=== PATIENT | male | born 1950 | race Caucasian/White ===

== ENCOUNTER 2021-11-02 18:47 | Inpatient (IN) ==
[2021-11-02 19:19] LABS: Basophils # (auto) 0.04 K/uL (0-0.2); Basophils % (auto) 0.5 %; Eosinophils # (auto) 0.14 K/uL (0-0.50); Eosinophils % (auto) 1.7 %; Hematocrit (blood only) 47.7 % (40.1-51.0); Hemoglobin 16.6 g/dl (14.0-18.0); Immature Granulocytes # (auto) 0.03 K/uL (0.00-0.02); Immature Granulocytes % (auto) 0.4 %; Lymphocytes # (auto) 1.41 K/uL (1.2-3.4); Lymphocytes % (auto) 16.6 %; Mean Corpuscular Hgb Conc 34.8 g/dL (32.0-36.0); Monocytes # (auto) 0.71 K/uL (0.24-0.82); Monocytes % (auto) 8.4 %; Neutrophils # (auto) 6.14 K/uL (1.4-6.5); Neutrophils % (auto) 72.4 %; Platelet Count 208 K/uL (130-400); RDW Coefficient of Variation 13.5 % (11.5-14.5); RDW Standard Deviation 43.8 fL (36.4-46.3); Red Blood Count 5.36 M/uL (4.63-6.08); White Blood Count 8.47 K/ul (4.8-10.8)
--- NOTE | 2021-11-02 19:28 | Emergency Department Note ---
Impression & Plan Chest pain, Abnormal EKG ED Provider Note NAME: SRINIVASAN SEXTON AGE: 71 SEX: M : 1950 ARRIVES VIA: Ambulance INFORMANT: Patient, ED PROVIDER(S): Ashish Javier DO CHIEF COMPLAINT: Chest pain HPI: The patient is a 71-year-old male who presented to the emergency department for an evaluation of chest pain. The patient states that he has chest pain over the course of the last few months. He states it does worsen with exertion. The patient also noticed some shortness of breath. The patient talked to his family member who is in the medical field. They advised him to seek medical treatment. The patient went to the [facility] and [place] and was sent directly to the emergency department. They felt he had an EKG that showed some changes. The patient does have a history of coronary artery disease with grafting. He states he did not take his nitroglycerin. The patient states that he was given aspirin at the clinic prior to coming to the emergency department. The patient at this time states he has no discomfort. He denies having any shortness of breath at this time. He denies having any leg swelling. ROS: See above HPI for pertinent positives & negatives. A total of 10 systems reviewed and were otherwise negative. PAST MEDICAL HISTORY: See Below PAST SURGICAL HISTORY: See Below FAMILY HISTORY: See Below SOCIAL HISTORY: See Below HOME MEDICATIONS: See Below ALLERGIES: See Below VITALS: See Below PHYSICAL EXAMINATION: GENERAL: Patient is awake alert in no acute distress patient is resting comfortably and showing no signs of anxiety EYES: The conjunctivae are clear. The pupils are round and reactive. EARS, NOSE, MOUTH AND THROAT: The nose is without any evidence of any deformity. NECK: The neck is nontender and supple. RESPIRATORY: Normal respiratory effort is noted there is no evidence of wheezing rhonchi or rales CARDIOVASCULAR: Regular rate and rhythm noted there no murmurs rubs or gallops normal S1 normal S2. GASTROINTESTINAL: The abdomen is soft. Abdomen is nontender. MUSCULOSKELETAL/EXTREMITIES: There is no evidence of gross deformity full range of motion is noted in the hips and shoulders. SKIN: Pedal edema was noted bilaterally. Skin was warm and dry. NEUROLOGIC: Patient is awake alert and oriented x3 MEDICAL DECISION MAKING: The patient is a 71-year-old male who presented to the emergency department for an evaluation of chest pain. The patient has a history of coronary artery disease as well as coronary artery stenting. The patient is high risk for underlying ACS. The patient arrived at the emergency department. He was treated with aspirin prior to arrival. He has no pain at this time. I discussed the patient's laboratory and radiographic studies with him. I also discussed the limitations of the emergency department work-up for chest pain with him. Ultimately given the patient's risk factors and comorbidities I discussed his case with the on-call [facility] [address] hospitalist. They have agreed to evaluate the patient in the emergency department for further management and disposition. Triage Nursing notes reviewed. Prior medical records reviewed Vital Signs: reviewed and remarkable for no significant abnormalities Differential diagnosis: Cardiac ischemia, aortic dissection, pulmonary embolism, pneumothorax, pneumonia, pericarditis, myocarditis, esophageal rupture, GERD, cholecystitis, pancreatitis, musculoskeletal, as well as other pathologies. ER treatment provided: See below Diagnostics interpreted by me: ECG: EKG was obtained in the emergency department. My interpretation is sinus rhythm at 83 bpm. First-degree block is noted. Right bundle branch block pattern was noted. This was compared to the patient's previous tracing that was obtained at the [facility]. No significant changes were noted. Cardiac Monitoring: An order was placed for continuous cardiac monitoring. The monitor shows a rate of 71 bpm with sinus rhythm. Laboratory studies: As stated above and show below. Imaging studies: See below Consultation(s): I discussed this case with Dr. Lizama Past Med/Surg History Medical History BPH (benign prostatic hyperplasia) CAD in [place] artery Cellulitis Diabetes mellitus, type II Dyslipidemia GERD (gastroesophageal reflux disease) HTN (hypertension) Obesity Sleep apnea Surgical History H/O heart artery stent History of total hip arthroplasty Family History Other Diabetes Hypertension Social History Smoking Status: Former smoker Hx Alcohol Use: Yes (1 mixed drink 2-3 times a week) Hx Substance Use: No Preferred Language: Cymraes Feels Safe at Home: Yes Allergies Allergies Allergy/AdvReac Type Severity Reaction Status Date / Time atorvastatin AdvReac Muscle Pain Verified 11/02/21 21:09 pravastatin [From Pravachol] AdvReac Muscle Pain Verified 11/02/21 21:09 rosuvastatin [From Crestor] AdvReac Muscle Pain Verified 11/02/21 21:09 simvastatin [From Zocor] AdvReac Muscle Pain Verified 11/02/21 21:09 tiotropium AdvReac Eye Verified 11/02/21 21:57 floaters & Urinary retention Home Meds Home Medications Medication Instructions Recorded Confirmed alirocumab 150 mg/mL subcutaneous 150 mg subcut Q14D 07/29/19 11/02/21 pen injector (Praluent Pen) aspirin 81 mg tablet,delayed 81 mg PO QAM 07/29/19 11/02/21 release clonazepam 1 mg tablet (Klonopin) 1 mg PO HS PRN Insomnia 07/29/19 11/02/21 doxazosin 4 mg tablet (Cardura) 4 mg PO QAM 07/29/19 11/02/21 esomeprazole magnesium 20 mg 20 mg PO QAM 07/29/19 11/02/21 tablet,delayed release (Nexium 24HR) lisinopril 2.5 mg tablet (Zestril) 2.5 mg PO QAM 07/29/19 11/02/21 metformin 1,000 mg tablet 1,000 mg PO BID 07/29/19 11/02/21 nitroglycerin 0.4 mg sublingual 0.4 mg sublingual Q15M PRN Chest 07/29/19 11/02/21 tablet (Nitrostat) Pain omega 7-tkg-xjg-fish oil 1,000 mg 1 cap PO QAM 07/29/19 11/02/21 (120 mg-180 mg) capsule (Fish Oil) cholecalciferol (vitamin D3) 25 1,000 unit PO DAILY 11/02/21 11/02/21 mcg (1,000 unit) tablet dulaglutide 1.5 mg/0.5 mL 1.5 mg subcut WK 11/02/21 11/02/21 subcutaneous pen injector (Trulicity) empagliflozin 25 mg tablet 25 mg PO DAILY 11/02/21 11/02/21 (Jardiance) ezetimibe 10 mg tablet 10 mg PO DAILY 11/02/21 11/02/21 fluticasone propionate 50 2 spray intranasal DAILY PRN 11/02/21 11/02/21 mcg/actuation nasal Congestion spray,suspension Results & Data (ED) Vital Signs Vital Signs - 24 hr 11/02/21 19:10 11/02/21 19:14 11/02/21 18:57 Pulse Rate 111 H Pulse Rate from SpO2 Sensor Respiratory Rate 22 Blood Pressure Blood Pressure Mean Pulse Oximetry 99 Oxygen Delivery Method Room Air Sepsis Recent Fever Within 48 Hours No Sepsis New/Unexplained Change in Mental Status No Sepsis Action Taken by Nursing No Action Required 11/02/21 19:00 11/02/21 19:03 11/02/21 19:03 Pulse Rate 81 80 Pulse Rate from SpO2 Sensor 86 Respiratory Rate 17 15 Blood Pressure 146/92 H Blood Pressure Mean 110 Pulse Oximetry 96 Oxygen Delivery Method Sepsis Recent Fever Within 48 Hours Sepsis New/Unexplained Change in Mental Status Sepsis Action Taken by Nursing 11/02/21 19:10 11/02/21 19:20 11/02/21 19:30 Pulse Rate 87 76 77 Pulse Rate from SpO2 Sensor 85 78 74 Respiratory Rate 21 14 15 Blood Pressure Blood Pressure Mean Pulse Oximetry 98 97 98 Oxygen Delivery Method Sepsis Recent Fever Within 48 Hours Sepsis New/Unexplained Change in Mental Status Sepsis Action Taken by Nursing 11/02/21 19:31 11/02/21 19:31 11/02/21 19:40 Pulse Rate 76 69 Pulse Rate from SpO2 Sensor 71 63 Respiratory Rate 18 16 Blood Pressure 128/83 Blood Pressure Mean 98 Pulse Oximetry 98 97 Oxygen Delivery Method Sepsis Recent Fever Within 48 Hours Sepsis New/Unexplained Change in Mental Status Sepsis Action Taken by Nursing 11/02/21 20:00 11/02/21 20:00 11/02/21 20:30 Pulse Rate 70 Pulse Rate from SpO2 Sensor 68 Respiratory Rate 12 Blood Pressure 124/76 129/81 Blood Pressure Mean 92 97 Pulse Oximetry 97 Oxygen Delivery Method Sepsis Recent Fever Within 48 Hours Sepsis New/Unexplained Change in Mental Status Sepsis Action Taken by Nursing 11/02/21 20:30 11/02/21 22:06 11/02/21 22:07 Pulse Rate 77 63 Pulse Rate from SpO2 Sensor 75 Respiratory Rate 16 13 Blood Pressure 123/69 Blood Pressure Mean 87 Pulse Oximetry 95 Oxygen Delivery Method Sepsis Recent Fever Within 48 Hours Sepsis New/Unexplained Change in Mental Status Sepsis Action Taken by Nursing 11/02/21 22:07 11/02/21 22:30 11/02/21 22:31 Pulse Rate 61 69 Pulse Rate from SpO2 Sensor Respiratory Rate 16 18 Blood Pressure 121/74 Blood Pressure Mean 89 Pulse Oximetry Oxygen Delivery Method Sepsis Recent Fever Within 48 Hours Sepsis New/Unexplained Change in Mental Status Sepsis Action Taken by Nursing 11/02/21 22:31 Pulse Rate 71 Pulse Rate from SpO2 Sensor Respiratory Rate 17 Blood Pressure Blood Pressure Mean Pulse Oximetry Oxygen Delivery Method Sepsis Recent Fever Within 48 Hours Sepsis New/Unexplained Change in Mental Status Sepsis Action Taken by Prison Medications Current Medication List: was personally reviewed by me Laboratory Data Attestation: I reviewed the patient's lab results. Result diagrams: 11/02/21 19:04 11/02/21 19:04 Lab Results 11/02/21 11/02/21 11/02/21 Range/Units 19:04 19:04 19:04 WBC 8.47 (4.8-10.8) K/ul RBC 5.36 (4.63-6.08) M/uL Hgb 16.6 (14.0-18.0) g/dl Hct 47.7 (40.1-51.0) % MCV 89.0 (80.0-100.0) fL MCH 31.0 (25.0-34.0) pg MCHC 34.8 (32.0-36.0) g/dL RDW Std Deviation 43.8 (36.4-46.3) fL RDW Coeff of Sebastian 13.5 (11.5-14.5) % Plt Count 208 (130-400) K/uL MPV 9.0 L (9.4-12.4) fL Immature Gran % (Auto) 0.4 % Neut % (Auto) 72.4 % Lymph % (Auto) 16.6 % [place] % (Auto) 8.4 % Eos % (Auto) 1.7 % Baso % (Auto) 0.5 % Neut # (Auto) 6.14 (1.4-6.5) K/uL Lymph # (Auto) 1.41 (1.2-3.4) K/uL [place] # (Auto) 0.71 (0.24-0.82) K/uL Eos # (Auto) 0.14 (0-0.50) K/uL Baso # (Auto) 0.04 (0-0.2) K/uL Immature Gran # (Auto) 0.03 H (0.00-0.02) K/uL PT 10.1 (9.0-12.0) Seconds INR 0.9 (0.9-1.1) APTT 23.4 (21.0-31.0) Seconds PTT Ratio 0.9 Sodium 141 (136-145) mmol/L Potassium 3.9 (3.5-5.1) mmol/L Chloride 104 (98-107) mmol/L Carbon Dioxide 26 (21-32) mmol/L Anion Gap 11 (3-11) BUN 17 (6-23) mg/dl Creatinine 0.91 (0.6-1.4) mg/dl Est Cr Clr Drug Dosing 100.2 ml/min Est GFR ( Amer) 97.2 ml/min Est GFR (Non-Af Amer) 83.9 ml/min BUN/Creatinine Ratio 18.7 (10-20) Glucose 167 H (70-99(Fasting)) mg/dl Calcium 9.8 (8.5-10.1) mg/dl Total Bilirubin 0.6 (0.2-1.0) mg/dl AST 14 (13-39) U/L ALT 12 (7-52) U/L Alkaline Phosphatase 81 (34-104) U/L Troponin I High Sens 7.7 (0-20) pg/ml Total Protein 7.6 (6.0-8.3) gm/dl Albumin 4.2 (3.4-5.0) gm/dl Globulin 3.4 (2.5-4.0) gm/dl Albumin/Globulin Ratio 1.2 (0.9-2) Lipase 28 (11-82) U/L SARS-CoV-2, RNA, NAAT (NEGATIVE) 11/02/21 11/02/21 Range/Units 19:15 22:29 WBC (4.8-10.8) K/ul RBC (4.63-6.08) M/uL Hgb (14.0-18.0) g/dl Hct (40.1-51.0) % MCV (80.0-100.0) fL MCH (25.0-34.0) pg MCHC (32.0-36.0) g/dL RDW Std Deviation (36.4-46.3) fL RDW Coeff of Sebastian (11.5-14.5) % Plt Count (130-400) K/uL MPV (9.4-12.4) fL Immature Gran % (Auto) % Neut % (Auto) % Lymph % (Auto) % [place] % (Auto) % Eos % (Auto) % Baso % (Auto) % Neut # (Auto) (1.4-6.5) K/uL Lymph # (Auto) (1.2-3.4) K/uL [place] # (Auto) (0.24-0.82) K/uL Eos # (Auto) (0-0.50) K/uL Baso # (Auto) (0-0.2) K/uL Immature Gran # (Auto) (0.00-0.02) K/uL PT (9.0-12.0) Seconds INR (0.9-1.1) APTT (21.0-31.0) Seconds PTT Ratio Sodium (136-145) mmol/L Potassium (3.5-5.1) mmol/L Chloride (98-107) mmol/L Carbon Dioxide (21-32) mmol/L Anion Gap (3-11) BUN (6-23) mg/dl Creatinine (0.6-1.4) mg/dl Est Cr Clr Drug Dosing ml/min Est GFR ( Amer) ml/min Est GFR (Non-Af Amer) ml/min BUN/Creatinine Ratio (10-20) Glucose (70-99(Fasting)) mg/dl Calcium (8.5-10.1) mg/dl Total Bilirubin (0.2-1.0) mg/dl AST (13-39) U/L ALT (7-52) U/L Alkaline Phosphatase (34-104) U/L Troponin I High Sens 9.9 (0-20) pg/ml Total Protein (6.0-8.3) gm/dl Albumin (3.4-5.0) gm/dl Globulin (2.5-4.0) gm/dl Albumin/Globulin Ratio (0.9-2) Lipase (11-82) U/L SARS-CoV-2, RNA, NAAT NEGATIVE (NEGATIVE) Administered Medications Discontinued Medications Ioversol (Optiray 300 500ml) 109 ml IV ONCE ONE Stop: 11/02/21 23:10 Last Admin: 11/02/21 23:10 Dose: 109 ml Documented By: SERGIO Imaging Data Radiologist's Impression: Chest X-Ray 11/02/21 18:57 SINGLE VIEW CHEST CLINICAL HISTORY: Atypical chest pain. Cough and dyspnea FINDINGS: 2 AP, portable, upright chest radiographs are compared to study dated 02/02/2006. The heart is enlarged noting atherosclerotic calcification of the thoracic aorta. The pulmonary vasculature is noncongested. Chronic interstitial thickening is similar to previous. There is bibasilar scarring/atelectasis. No airspace consolidation or large pleural effusion is identified. No pneumothorax is seen. The skeletal structures are osteopenic. The bony thorax is grossly intact. IMPRESSION: Cardiomegaly with no acute cardiopulmonary abnormality identified. ACT 112: Negative or not required by law. Electronically signed by: Apolinar Ribeiro M.D. 11/02/2021 7:46 PM Chest CTA 11/02/21 22:52 CT ANGIOGRAM OF THE CHEST CLINICAL HISTORY: Dyspnea. Atypical chest pain. COMPARISON STUDY: Chest x-ray dated 11/02/2021. TECHNIQUE: Following the IV administration of 109 cc of Optiray 350, CT angiogram of the chest was performed from the upper abdomen to the thoracic inlet utilizing the pulmonary embolus protocol. Images are reviewed in the axial, sagittal, and coronal planes. 3-D MIPS images are created and assessed. IV contrast was administered without complication. A dose lowering technique was utilized adhering to the principles of ALARA. CT DOSE: 807.06 mGy.cm FINDINGS: Thyroid: Imaged portions of the thyroid gland are normal in size and attenuation. Thoracic aorta: The thoracic aorta is normal in caliber and demonstrates standard 3-vessel arch anatomy. No dissection is seen. Pulmonary vasculature: The pulmonary trunk is normal in caliber. There are no filling defects identified in main, lobar, or segmental pulmonary branches to suggest pulmonary embolus. Heart: The heart is enlarged and without pericardial effusion. The coronary arteries are densely calcified. Lungs and pleural spaces: Emphysematous changes noted. There is no airspace consolidation or pleural effusion. The trachea and central airways are clear. There are bilateral fat-containing Bochdalek hernias. Scarring/atelectasis is seen at both lung bases. A 7 mm pulmonary nodule at the right lung base seen on image #89. A 10 mm pleural-based nodule in the right lower lobe is seen on image #129. Mediastinum: There is no mediastinal lymphadenopathy. [place]: Clear. Axillae: There is no axillary lymphadenopathy. Upper abdomen: There is a small hiatal hernia. Partially visualized upper abdominal viscera is otherwise within normal limits. Skeletal structures: The skeletal structures are osteopenic. No lytic or blastic bony lesions are seen. Degenerative change is noted in the thoracic spine and shoulders. IMPRESSION: 1. There is no evidence of pulmonary embolus in the main, lobar, or segmental pulmonary arteries. 2. Cardiomegaly and emphysema. 3. There is no airspace consolidation or pleural effusion. 4. There are 2 pathologically indeterminant pulmonary and pleural-based nodules at the right lung base measuring up to 10 mm. These can be followed as per the Fleischner criteria. See below. 5. Additional findings as above. Please refer to below summary of Fleischner criteria recommendations for follow- up of incidental CT nodules (Ro Byrne, Guidelines for management of small pulmonary nodules detected on CT scans: A statement from the Fleischner Society, Radiology 237: [phone].) SOLID NODULES Solitary nodule size: <6 mm * low risk patients: no follow-up needed * high risk patients: optional CT at 12 months Solitary nodule size: 6-8 mm * low risk patients: follow-up at 6-12 months, then consider further follow-up at 18-24 months * high risk patients: initial follow-up CT at 6-12 months and then at 18-24 months if no change Solitary nodule size: >8 mm * either low or high risk patients - consider follow-up CT at 3 months, and/or CT-PET, and/or biopsy Multiple nodules size: <6 mm * low risk patients: no routine follow-up * high risk patients: optional CT at 12 months Multiple nodules size: 6-8 mm * low risk patients: follow-up at 3-6 months, then consider further follow-up at 18-24 months * high risk patients: follow-up at 3-6 months, then at 18-24 months if no change Multiple nodules size: >8 mm * low risk patients: follow-up at 3-6 months, then consider further follow-up at 18-24 months * high risk patients: follow-up at 3-6 months, then at 18-24 months if no change Note: newly detected indeterminate nodule in persons 35 years of age or older. * low risk patients: minimal or absent history of smoking and/or other known risk factors * high risk patients: history of smoking or of other known risk factors (e.g. first degree relative with lung cancer, or exposure to asbestos, radon, uranium) * if a nodule up to 8 mm is partly solid or is ground glass further follow-up is required after 24 months to exclude possible slow growing adenocarcinoma (YOLIE) SUBSOLID NODULES Solitary pure ground-glass nodule * nodule size <6 mm - no CT follow-up required * nodule size >=6 mm - follow-up CT at 6-12 months, then every 2 years until 5 years Solitary part-solid nodule * nodule size <6 mm - no CT follow-up required * nodule size >=6 mm - follow-up CT at 3-6 months. If unchanged, and solid component remains <6 mm, then annual follow-up for 5 years Multiple subsolid nodules * nodule size <6 mm - follow-up CT at 3-6 months, consider further follow-up at 2 and 4 years if stable * nodule size >=6 mm - follow-up CT at 3-6 months, subsequent management based on the most suspicious nodule(s) ACT 112: Negative or not required by law. Electronically signed by: Apolinar Ribeiro M.D. 11/02/2021 11:22 PM Discharge Plan Visit Data Chief Complaint: Chest Pain Stated Complaint: CHEST PAIN ED Provider: Ashish Javier Discharge Problem: Chest pain, Abnormal EKG Patient Disposition: Being Evaluated by Hospitalist Forms Stand Alone Forms: [facility] Prescriptions Prescriptions: No Action clonazepam [Klonopin] 1 mg tablet 1 mg PO HS PRN (Reason: Insomnia) aspirin 81 mg Tablet,Delayed Release (Dr/Ec) 81 mg PO QAM metformin 1,000 mg tablet 1,000 mg PO BID nitroglycerin [Nitrostat] 0.4 mg tablet, sublingual 0.4 mg sublingual Q15M PRN (Reason: Chest Pain) doxazosin [Cardura] 4 mg tablet 4 mg PO QAM lisinopril [Zestril] 2.5 mg tablet 2.5 mg PO QAM omega 1-enj-ndb-fish oil [Fish Oil] 1,000 mg (120 mg-180 mg) Capsule 1 cap PO QAM esomeprazole magnesium [Nexium 24HR] 20 mg Tablet,Delayed Release (Dr/Ec) 20 mg PO QAM Praluent Pen 150 mg/mL pen injector 150 mg SUBCUT Q14D ezetimibe 10 mg tablet 10 mg PO DAILY cholecalciferol (vitamin D3) 25 mcg (1,000 unit) Tablet 1,000 unit PO DAILY Jardiance 25 mg tablet 25 mg PO DAILY Trulicity 1.5 mg/0.5 mL pen injector 1.5 mg SUBCUT WK fluticasone propionate 50 mcg/actuation spray,suspension 2 spray INTRANASAL DAILY PRN (Reason: Congestion) Referrals Referrals: Dean De Souza MD [Primary Care Provider] -
[2021-11-02 19:39] LABS: INR 0.9 (0.9-1.1); Partial Thromboplastin Ratio 0.9; Partial Thromboplastin Time 23.4 Seconds (21.0-31.0); Prothrombin Time 10.1 Seconds (9.0-12.0)
--- NOTE | 2021-11-02 19:48 | XRay Report ---
SINGLE VIEW CHEST CLINICAL HISTORY: Atypical chest pain. Cough and dyspnea FINDINGS: 2 AP, portable, upright chest radiographs are compared to study dated 02/02/2006. The heart is enlarged noting atherosclerotic calcification of the thoracic aorta. The pulmonary vasculature is noncongested. Chronic interstitial thickening is similar to previous. There is bibasilar scarring/at electasis. No airspace consolidation or large pleural effusion is identified. No pneumothorax is seen . The skeletal structures are osteopenic. The bony thorax is grossly intact. IMPRESSION: Cardiomegaly with no acute cardiopulmonary abnormality identified. ACT 112: Negative or not required by law. Electronically signed by: Apolinar Ribeiro M.D. 11/02/2021 7:46 PM
[2021-11-02 20:01] LABS: Troponin I High Sensitivity 7.7 pg/ml (0-20)
[2021-11-02 20:04] LABS: Albumin Globulin Ratio 1.2 (0.9-2); Albumin Level 4.2 gm/dl (3.4-5.0); BUN Creatinine Ratio 18.7 (10-20); Bilirubin,Total 0.6 mg/dl (0.2-1.0); Calcium 9.8 mg/dl (8.5-10.1); Creatinine Clr Calc Pharmacy 100.2 ml/min; Est GFR (African American) 97.2 ml/min; Est GFR (Non-African American) 83.9 ml/min; Globulin 3.4 gm/dl (2.5-4.0); Potassium 3.9 mmol/L (3.5-5.1); Total Protein 7.6 gm/dl (6.0-8.3)
--- NOTE | 2021-11-02 21:16 | History & Physical Report ---
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 Assessment and plan per Dr. Churchill. See addendum History of Present Illness Chief Complaint: Chest discomfort Primary Care Provider: Dean De Souza MD Patient is 71-year-old male with PMH HTN, dyslipidemia, CAD status post stent RCA 2004, aortic root enlargement, DM II chronic BLE edema, venous insufficiency, obesity, BPH, RICK intolerant to CPAP, presented to ER with complaint of chest discomfort. Patient states today was grocery shopping and walking around the store. He returned home and upon return home he had onset of lightheadedness, palpitations, "chest feels funny but not painful", and jaw pain. He states with prior [place] had jaw pain. He reports he has been feeling short of breath with exertion more recently. Patient went to outpatient clinic for symptoms today and was referred to ER for further evaluation. In ER patient denies any chest pain, shortness of breath, palpitations, dizziness. She reports he feels fatigued. Patient states chronic insomnia and last night slept 1 hour. Patient states 2 weeks ago had nasal congestion, sore throat, cough. He reports his grandson had sore throat symptoms. He reports his symptoms have improved, still has lingering intermittent cough. Did not test for COVID-19 initially. Patient states 2 to 3 days ago did home COVID-19 test which was negative. Patient reports almost a month ago had scratch to right lower leg and had surrounding redness and was treated with oral antibiotics with improvement. Denies fever/chills, diaphoresis, N/V/D/C, RUSSELL, syncope, vision changes, neck pain, orthopnea, hemoptysis, choking, otalgia, abdominal pain, paresthesias, weakness, increased extremity edema, rashes, urinary symptoms. Allergies Allergy/AdvReac Type Severity Reaction Status Date / Time atorvastatin AdvReac Muscle Pain Verified 11/02/21 21:09 pravastatin [From Pravachol] AdvReac Muscle Pain Verified 11/02/21 21:09 rosuvastatin [From Crestor] AdvReac Muscle Pain Verified 11/02/21 21:09 simvastatin [From Zocor] AdvReac Muscle Pain Verified 11/02/21 21:09 tiotropium AdvReac Eye Verified 11/02/21 21:57 floaters & Urinary retention Home Medications Medication Instructions Recorded Confirmed Type alirocumab 150 mg/mL subcutaneous 150 mg subcut Q14D 07/29/19 11/02/21 History pen injector (Praluent Pen) aspirin 81 mg tablet,delayed 81 mg PO QAM 07/29/19 11/02/21 History release clonazepam 1 mg tablet (Klonopin) 1 mg PO HS PRN Insomnia 07/29/19 11/02/21 History doxazosin 4 mg tablet (Cardura) 4 mg PO QAM 07/29/19 11/02/21 History esomeprazole magnesium 20 mg 20 mg PO QAM 07/29/19 11/02/21 History tablet,delayed release (Nexium 24HR) lisinopril 2.5 mg tablet (Zestril) 2.5 mg PO QAM 07/29/19 11/02/21 History metformin 1,000 mg tablet 1,000 mg PO BID 07/29/19 11/02/21 History nitroglycerin 0.4 mg sublingual 0.4 mg sublingual Q15M PRN Chest 07/29/19 11/02/21 History tablet (Nitrostat) Pain omega 2-xyn-yur-fish oil 1,000 mg 1 cap PO QAM 07/29/19 11/02/21 History (120 mg-180 mg) capsule (Fish Oil) cholecalciferol (vitamin D3) 25 1,000 unit PO DAILY 11/02/21 11/02/21 History mcg (1,000 unit) tablet dulaglutide 1.5 mg/0.5 mL 1.5 mg subcut WK 11/02/21 11/02/21 History subcutaneous pen injector (Trulicity) empagliflozin 25 mg tablet 25 mg PO DAILY 11/02/21 11/02/21 History (Jardiance) ezetimibe 10 mg tablet 10 mg PO DAILY 11/02/21 11/02/21 History fluticasone propionate 50 2 spray intranasal DAILY PRN 11/02/21 11/02/21 History mcg/actuation nasal Congestion spray,suspension Past Med/Surg History Medical History BPH (benign prostatic hyperplasia) 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 Cellulitis Diabetes mellitus, type II Dyslipidemia GERD (gastroesophageal reflux disease) HTN (hypertension) Obesity Sleep apnea Surgical History H/O heart artery stent History of total hip arthroplasty Family History Other Diabetes Hypertension Social History Smoking Status: Former smoker Hx Alcohol Use: Yes Alcohol type: beer Hx Substance Use: No Preferred Language: Welsh 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 Machine Required: No Beliefs That Will Affect Care: None Current Living Situation: Spouse Feels Safe at Home: Yes Safety Concerns: Feels Safe At This Time Assistive Devices: Glasses Review of Systems Review of Systems: All systems reviewed & are unremarkable except as noted in HPI & below Physical Exam Physical Exam: General: no distress, obese Head: normocephalic, atraumatic Eyes: conjunctiva non-injected, anicteric ENT: normal inspection external ears, nose, mucous membranes moist Neck: supple, trachea midline Lungs: no respiratory distress, +scattered expiratory wheezing that decreases after coughing, no rhonchi/rales CV: RRR, no murmur, 1+ pretibial edema Abd: normal BS, soft, non-tender Ext: no cyanosis, no calf tenderness, RLE: +anterior lower leg with scab with surrounding erythema Neuro: A&O x 3, no focal deficits noted, normal affect Skin: warm, dry Results & Data Results & Data ([facility]) Vital Signs (Past 12 Hours) Vital Signs Pulse Resp BP Pulse Ox O2 Del Method 11/02/21 19:40 69 16 97 11/02/21 19:31 76 18 98 11/02/21 19:31 128/83 11/02/21 19:30 77 15 98 11/02/21 19:20 76 14 97 11/02/21 19:10 87 21 98 11/02/21 19:03 80 15 96 11/02/21 19:03 146/92 H 11/02/21 19:00 81 17 11/02/21 18:57 111 H 22 11/02/21 19:10 99 Room Air Laboratory Results Short CBC 11/02/21 Range/Units 19:04 WBC 8.47 (4.8-10.8) K/ul Hgb 16.6 (14.0-18.0) g/dl Hct 47.7 (40.1-51.0) % Plt Count 208 (130-400) K/uL BMP 11/02/21 19:04 Sodium 141 Potassium 3.9 Chloride 104 Carbon Dioxide 26 BUN 17 Creatinine 0.91 Glucose 167 H Calcium 9.8 Liver Function 11/02/21 Range/Units 19:04 Total Bilirubin 0.6 (0.2-1.0) mg/dl AST 14 (13-39) U/L ALT 12 (7-52) U/L Alkaline Phosphatase 81 (34-104) U/L Albumin 4.2 (3.4-5.0) gm/dl Diagnostic Findings Chest X-Ray 11/02/21 18:57 SINGLE VIEW CHEST CLINICAL HISTORY: Atypical chest pain. Cough and dyspnea FINDINGS: 2 AP, portable, upright chest radiographs are compared to study dated 02/02/2006. The heart is enlarged noting atherosclerotic calcification of the thoracic aorta. The pulmonary vasculature is noncongested. Chronic interstitial thickening is similar to previous. There is bibasilar scarring/atelectasis. No airspace consolidation or large pleural effusion is identified. No pneumothorax is seen. The skeletal structures are osteopenic. The bony thorax is grossly intact. IMPRESSION: Cardiomegaly with no acute cardiopulmonary abnormality identified. ACT 112: Negative or not required by law. Electronically signed by: Apolinar Ribeiro M.D. 11/02/2021 7:46 PM ECG Rhythm: sinus rhythm Findings: + 1st degree AV block and + Q waves (Inferior, anterior) Supervising Physician Co-Signing Physician Notes IM ATTENDING : Patient seen and examined. History obtained from patient and records. Preceding documentation by Ms. Haylie Solorzano PA-C reviewed. FINAL ASSESSMENT AND PLAN as follows : Chest pain hx CAD status post stent rule out ACS Hypertension, stable hyperlipidemia/statin intolerance on Praluent and Zetia DM2 on oral medications, reasonable control as of recent hemoglobin A1c of 7.6 last September 2021 COPD, pulmonary status currently stable RICK, CPAP noncompliance Past tobacco abuse OBS PCU Trend troponin TTE, Cardiology consult Re: Chest pain Basal bolus insulin, ISS BG goal 1 10-1 40, carb count coverage DVT prophylaxis. Lovenox subcu Full code Text document was generated using Fullbridge voice recognition software. It may contain grammatical or spelling errors. Kindly contact undersigned for clarification of any documentation item in question.
[2021-11-02] MEDS ORDERED: LACTATED RINGER'S 1,000 ML IV ONE (23:07)
[2021-11-02] MEDS ORDERED: OPTIRAY 300 500mL IV ONE (23:09)
--- NOTE | 2021-11-02 23:25 | CT Scan Report ---
CT ANGIOGRAM OF THE CHEST CLINICAL HISTORY: Dyspnea. Atypical chest pain. COMPARISON STUDY: Chest x-ray dated 11/02/2021. TECHNIQUE: Following the IV administration of 109 cc of Optiray 350, CT angiogram of the chest was pe rformed from the upper abdomen to the thoracic inlet utilizing the pulmonary embolus protocol. Images are reviewed in the axial, sagittal, and coronal planes. 3-D MIPS images are created and assessed. I V contrast was administered without complication. A dose lowering technique was utilized adhering to the principles of ALARA. CT DOSE: 807.06 mGy.cm FINDINGS: Thyroid: Imaged portions of the thyroid gland are normal in size and attenuation. Thoracic aorta: The thoracic aorta is normal in caliber and demonstrates standard 3-vessel arch anato my. No dissection is seen. Pulmonary vasculature: The pulmonary trunk is normal in caliber. There are no filling defects identif ied in main, lobar, or segmental pulmonary branches to suggest pulmonary embolus. Heart: The heart is enlarged and without pericardial effusion. The coronary arteries are densely calc ified. Lungs and pleural spaces: Emphysematous changes noted. There is no airspace consolidation or pleural effusion. The trachea and central airways are clear. There are bilateral fat-containing [place]k her nias. Scarring/atelectasis is seen at both lung bases. A 7 mm pulmonary nodule at the right lung base seen on image #89. A 10 mm pleural-based nodule in the right lower lobe is seen on image #129. Mediastinum: There is no mediastinal lymphadenopathy. Orly: Clear. Axillae: There is no axillary lymphadenopathy. Upper abdomen: There is a small hiatal hernia. Partially visualized upper abdominal viscera is otherw ise within normal limits. Skeletal structures: The skeletal structures are osteopenic. No lytic or blastic bony lesions are see n. Degenerative change is noted in the thoracic spine and shoulders. IMPRESSION: 1. There is no evidence of pulmonary embolus in the main, lobar, or segmental pulmonary arteries. 2. Cardiomegaly and emphysema. 3. There is no airspace consolidation or pleural effusion. 4. There are 2 pathologically indeterminant pulmonary and pleural-based nodules at the right lung bas e measuring up to 10 mm. These can be followed as per the Fleischner criteria. See below. 5. Additional findings as above. Please refer to below summary of Fleischner criteria recommendations for follow-up of incidental CT n odules (Ro Byrne, Guidelines for management of small pulmonary nodules detected on CT scans: A sta tement from the Fleischner Society, Radiology 237: [phone].) SOLID NODULES Solitary nodule size: <6 mm * low risk patients: no follow-up needed * high risk patients: optional CT at 12 months Solitary nodule size: 6-8 mm * low risk patients: follow-up at 6-12 months, then consider further follow-up at 18-24 months * high risk patients: initial follow-up CT at 6-12 months and then at 18-24 months if no change Solitary nodule size: >8 mm * either low or high risk patients - consider follow-up CT at 3 months, and/or CT-PET, and/or biopsy Multiple nodules size: <6 mm * low risk patients: no routine follow-up * high risk patients: optional CT at 12 months Multiple nodules size: 6-8 mm * low risk patients: follow-up at 3-6 months, then consider further follow-up at 18-24 months * high risk patients: follow-up at 3-6 months, then at 18-24 months if no change Multiple nodules size: >8 mm * low risk patients: follow-up at 3-6 months, then consider further follow-up at 18-24 months * high risk patients: follow-up at 3-6 months, then at 18-24 months if no change Note: newly detected indeterminate nodule in persons 35 years of age or older. * low risk patients: minimal or absent history of smoking and/or other known risk factors * high risk patients: history of smoking or of other known risk factors (e.g. first degree relative with lung cancer, or exposure to asbestos, radon, uranium) * if a nodule up to 8 mm is partly solid or is ground glass further follow-up is required after 24 m onths to exclude possible slow growing adenocarcinoma (YOLIE) SUBSOLID NODULES Solitary pure ground-glass nodule * nodule size <6 mm - no CT follow-up required * nodule size >=6 mm - follow-up CT at 6-12 months, then every 2 years until 5 years Solitary part-solid nodule * nodule size <6 mm - no CT follow-up required * nodule size >=6 mm - follow-up CT at 3-6 months. If unchanged, and solid component remains <6 mm, then annual follow-up for 5 years Multiple subsolid nodules * nodule size <6 mm - follow-up CT at 3-6 months, consider further follow-up at 2 and 4 years if sta ble * nodule size >=6 mm - follow-up CT at 3-6 months, subsequent management based on the most suspiciou s nodule(s) ACT 112: Negative or not required by law. Electronically signed by: Apolinar Ribeiro M.D. 11/02/2021 11:22 PM
[2021-11-03] MEDS ORDERED: GLUCOSE 40% GEL 15 GM TUBE PO PRN (00:44)
[2021-11-03] MEDS ORDERED: DEXTROSE 50% 50 ML SYRINGE IV PRN (00:44)
[2021-11-03] MEDS ORDERED: PROMETHAZINE HCL 12.5 MG in SODIUM CHLORIDE 0.9% 50 ML IV PRN (00:44)
[2021-11-03] MEDS ORDERED: FLUTICASONE PROPIONATE NA SPR 16 GM BTL PRN (00:44)
[2021-11-03] MEDS ORDERED: CARBOHYDRATES FOR HYPOGLYCEMIA PO PRN (00:44)
[2021-11-03] MEDS ORDERED: traMADol HCL 50 MG TABLET PO PRN (00:44)
[2021-11-03] MEDS ORDERED: GLUCOSE 10 TAB/TUBE PO PRN (00:44)
[2021-11-03] MEDS ORDERED: GLUCAGON FOR INJ 1 MG VIAL SQ PRN (00:44)
[2021-11-03] MEDS ORDERED: MELATONIN 3 MG TAB PO PRN (00:44)
[2021-11-03] MEDS: INSULIN ASPART PER UNIT SC SCH ×5 (01:35→20:24)
[2021-11-03] MEDS: clonazePAM 1 MG TAB PO PRN (01:36)
[2021-11-03] MEDS: LANTUS PER UNIT CHARGE SQ SCH (04:57)
[2021-11-03 05:49] LABS: Basophils # (auto) 0.06 K/uL (0-0.2); Basophils % (auto) 0.9 %; Eosinophils # (auto) 0.13 K/uL (0-0.50); Immature Granulocytes # (auto) 0.03 K/uL (0.00-0.02); Immature Granulocytes % (auto) 0.5 %; Lymphocytes # (auto) 1.84 K/uL (1.2-3.4); Lymphocytes % (auto) 28.4 %; Mean Corpuscular Hemoglobin 30.5 pg (25.0-34.0); Mean Corpuscular Hgb Conc 33.3 g/dL (32.0-36.0); Mean Corpuscular Volume 91.5 fL (80.0-100.0); Mean Platelet Volume 8.8 fL (9.4-12.4); Monocytes # (auto) 0.79 K/uL (0.24-0.82); Monocytes % (auto) 12.2 %; Neutrophils # (auto) 3.62 K/uL (1.4-6.5); Platelet Count 197 K/uL (130-400); RDW Coefficient of Variation 13.4 % (11.5-14.5); RDW Standard Deviation 45.4 fL (36.4-46.3); Red Blood Count 4.92 M/uL (4.63-6.08); White Blood Count 6.47 K/ul (4.8-10.8)
[2021-11-03 05:59] LABS: Partial Thromboplastin Ratio 0.9; Partial Thromboplastin Time 24.6 Seconds (21.0-31.0)
[2021-11-03 06:17] LABS: BUN Creatinine Ratio 17.1 (10-20); Chol HDL Ratio 2.8 (0-5); Creatinine Clr Calc Pharmacy 85.6 ml/min; Est GFR (African American) 81.8 ml/min; Est GFR (Non-African American) 70.6 ml/min; Potassium 4.2 mmol/L (3.5-5.1)
[2021-11-03 07:33] LABS: Troponin I High Sensitivity 10.9 pg/ml (0-20)
[2021-11-03] MEDS: DOXAZosin MESYLATE 4 MG TAB PO SCH (08:12)
[2021-11-03] MEDS: ASPIRIN 81 MG ECTAB PO SCH (08:12)
[2021-11-03] MEDS: ENOXAPARIN INJ 40 MG/0.4 ML SYR SQ SCH (08:12)
[2021-11-03] MEDS: PANTOprazole 40 MG TAB PO SCH (08:12)
[2021-11-03] MEDS: EZETIMIBE 10 MG TABLET PO SCH (08:12)
[2021-11-03] MEDS: lisinopril 2.5 MG TAB PO SCH (08:13)
--- NOTE | 2021-11-03 08:49 | Electrocardiogram Report ---
Test Reason : Blood Pressure : / mmHG Vent. Rate : 083 BPM Atrial Rate : 083 BPM P-R Int : 268 ms QRS Dur : 126 ms QT Int : 392 ms P-R-T Axes : 086 -22 008 degrees QTc Int : 460 ms Sinus rhythm with 1st degree A-V block Non-specific intra-ventricular conduction block Cannot rule out Inferior infarct , age undetermined Abnormal ECG When compared with ECG of 02-FEB-2006 20:35, UT interval has increased Vent. rate has increased BY [address] no longer elevated in Inferolateral leads Confirmed by Robert Heck ([id number]) on 11/03/2021 8:48:55 AM Referred By: REFERRED SELF Confirmed By:Robert Heck
[2021-11-03] MEDS ORDERED: LANTUS PER UNIT CHARGE SQ SCH (09:00)
--- NOTE | 2021-11-03 09:19 | Cardiology Consultation ---
Date of Consultation November 03, 2021 Assessment & Plan (1) Chest pain: (2) Abnormal EKG: (3) HTN (hypertension): (4) Dyslipidemia: (5) Sleep apnea: Plan Patient is a 71-year-old male with known coronary artery disease with prior inferior myocardial infarction 2004 with chronic stable class I 2 angina pectoris in the past. He presents now noting a sudden change in exercise tolerance in the last 1 to 2 months with symptoms concerning for angina at low- level exertion at home date of admission. He noted chest pressure jaw pressure and shortness of breath as well as fluctuations heart rate and blood pressure EKGs demonstrated transient interventricular conduction delay but no acute ST segment changes Initial troponins negative Echocardiogram reflects hypokinesis inferior posterior wall slightly more pronounced than reported on prior studies no acute finding Symptoms are concerning for progression in anginal pattern. Discussed options of management with patient. Would recommend proceeding to coronary angiography with tentative procedure scheduled for Friday. Other options of medical therapy with stress testing discussed though patient already on excellent medical therapies with breakthrough symptom Patient agreeable we will follow with patient in hospital History of Present Illness Reason for Consultation: Chest pain, known coronary disease Requesting Physician: Dr. Pressley Attending Physician: Leanne Pressley MD History of Present Illness Patient is a 71-year-old male with known history of coronary artery disease with ongoing cardiac concerns 1. Chronic coronary artery disease status post inferior myocardial infarction 2004 with bare-metal stenting of the right coronary artery. Repeat cardiac catheterization 2011 without progression of disease 2. Aortic root enlargement 3. Dyslipidemia 4. Hypertension 5. Type 2 diabetes mellitus. 6. Obstructive sleep apnea not on therapy Patient presents this admission noting having been doing relatively well losing weight, underwent right hip replacement without issue. Recent difficulties with leg injury and contusion but healed. Now presents with symptoms concerning for past angina per patient with chest pressure and discomfort at relatively low level workload putting away groceries in kitchen. He checked pulse and found it to be irregular and blood pressure variable and sought further evaluation. Noted symptoms of chest pressure intermittently. EKGs done demonstrated old inferior infarct with interventricular conduction delay slightly more pronounced conduction changes in comparison to prior studies. Patient referred for inpatient management with resolve of symptoms on presentation. He was treated for recent cellulitis but no other acute illness. No fevers chills or unexplained infection. No bleeding difficulties. Appetite and weight have been generally stable with weight gradually trending down through dietary control. No change in medications. Does admit to significant sleep disturbances. Allergies Allergy/AdvReac Type Severity Reaction Status Date / Time atorvastatin AdvReac Muscle Pain Verified 11/02/21 21:09 pravastatin [From Pravachol] AdvReac Muscle Pain Verified 11/02/21 21:09 rosuvastatin [From Crestor] AdvReac Muscle Pain Verified 11/02/21 21:09 simvastatin [From Zocor] AdvReac Muscle Pain Verified 11/02/21 21:09 tiotropium AdvReac Eye Verified 11/02/21 21:57 floaters & Urinary retention Home Medications Medication Instructions Recorded Confirmed Type alirocumab 150 mg/mL subcutaneous 150 mg subcut Q14D 07/29/19 11/02/21 History pen injector (Praluent Pen) aspirin 81 mg tablet,delayed 81 mg PO QAM 07/29/19 11/02/21 History release clonazepam 1 mg tablet (Klonopin) 1 mg PO HS PRN Insomnia 07/29/19 11/02/21 History doxazosin 4 mg tablet (Cardura) 4 mg PO QAM 07/29/19 11/02/21 History esomeprazole magnesium 20 mg 20 mg PO QAM 07/29/19 11/02/21 History tablet,delayed release (Nexium 24HR) lisinopril 2.5 mg tablet (Zestril) 2.5 mg PO QAM 07/29/19 11/02/21 History metformin 1,000 mg tablet 1,000 mg PO BID 07/29/19 11/02/21 History nitroglycerin 0.4 mg sublingual 0.4 mg sublingual Q15M PRN Chest 07/29/19 11/02/21 History tablet (Nitrostat) Pain omega 0-qch-mtt-fish oil 1,000 mg 1 cap PO QAM 07/29/19 11/02/21 History (120 mg-180 mg) capsule (Fish Oil) cholecalciferol (vitamin D3) 25 1,000 unit PO DAILY 11/02/21 11/02/21 History mcg (1,000 unit) tablet dulaglutide 1.5 mg/0.5 mL 1.5 mg subcut WK 11/02/21 11/02/21 History subcutaneous pen injector (Trulicity) empagliflozin 25 mg tablet 25 mg PO DAILY 11/02/21 11/02/21 History (Jardiance) ezetimibe 10 mg tablet 10 mg PO DAILY 11/02/21 11/02/21 History fluticasone propionate 50 2 spray intranasal DAILY PRN 11/02/21 11/02/21 History mcg/actuation nasal Congestion spray,suspension Patient History Medical History BPH (benign prostatic hyperplasia) CAD in [place] artery Cellulitis Diabetes mellitus, type II Dyslipidemia GERD (gastroesophageal reflux disease) HTN (hypertension) Obesity Sleep apnea Surgical History H/O heart artery stent History of total hip arthroplasty Family History Other Diabetes Hypertension Social History Smoking Status: Former smoker Hx Alcohol Use: Yes Alcohol type: beer Hx Substance Use: No Preferred Language: Georgian [place] Required: No Beliefs That Will Affect Care: None Current Living Situation: Spouse Feels Safe at Home: Yes Safety Concerns: Feels Safe At This Time Assistive Devices: Glasses Review of Systems Review of Systems: All systems reviewed & are unremarkable except as noted in HPI & below Physical Exam Constitutional: + obese; no acute distress Eyes: PERRL, conjunctivae normal, anicteric sclerae ENMT: external ear and nose normal, oropharynx normal Neck: trachea midline, no thyromegaly + thick neck Respiratory: normal respiratory effort, lungs clear to auscultation Cardiovascular: Rate/Rhythm: regular rate and regular rhythm Heart Sounds: normal S1 and normal S2; no murmur Vessels: no JVD Extremities: no edema Gastrointestinal (Abdomen): normal bowel sounds, soft, nontender, no hepatosplenomegaly Musculoskeletal: Extremities: + chronic stasis changes Skin: + erythema (Bilateral lower extremity) Neurologic: PERRL, EOMI, accommodation nl, no face palsy, no dysarthria Results & Data ([facility]) Vital Signs (Past 12 Hours) Vital Signs Temp Pulse Pulse Resp BP BP Pulse Ox 11/03/21 07:59 50 L 11/03/21 07:59 11/03/21 06:52 36.6 C 51 L 18 130/76 94 11/03/21 03:02 36.7 C 61 18 128/65 95 11/03/21 01:50 59 L 11/03/21 00:30 36.5 C 20 114/80 95 11/03/21 00:00 73 14 121/63 97 11/02/21 23:30 87 19 126/73 94 11/02/21 23:00 21 141/73 H 95 11/02/21 22:31 71 17 11/02/21 22:31 121/74 11/02/21 22:30 69 18 11/02/21 22:07 61 16 11/02/21 22:07 123/69 11/02/21 22:06 63 13 O2 Del Method 11/03/21 07:59 11/03/21 07:59 Room Air 11/03/21 06:52 Room Air 11/03/21 03:02 Room Air 11/03/21 01:50 11/03/21 00:30 Room Air 11/03/21 00:00 Room Air 11/02/21 23:30 Room Air 11/02/21 23:00 Room Air 11/02/21 22:31 11/02/21 22:31 11/02/21 22:30 11/02/21 22:07 11/02/21 22:07 11/02/21 22:06 Laboratory Results Laboratory Results - last 24 hr 11/02/21 11/02/21 11/02/21 19:04 19:04 19:04 WBC 8.47 RBC 5.36 Hgb 16.6 Hct 47.7 MCV 89.0 MCH 31.0 MCHC 34.8 RDW Std Deviation 43.8 RDW Coeff of Sebastian 13.5 Plt Count 208 MPV 9.0 L Immature Gran % (Auto) 0.4 Neut % (Auto) 72.4 Lymph % (Auto) 16.6 Gray % (Auto) 8.4 Eos % (Auto) 1.7 Baso % (Auto) 0.5 Neut # (Auto) 6.14 Lymph # (Auto) 1.41 Gray # (Auto) 0.71 Eos # (Auto) 0.14 Baso # (Auto) 0.04 Immature Gran # (Auto) 0.03 H PT 10.1 INR 0.9 APTT 23.4 PTT Ratio 0.9 Sodium 141 Potassium 3.9 Chloride 104 Carbon Dioxide 26 Anion Gap 11 BUN 17 Creatinine 0.91 Est Cr Clr Drug Dosing 100.2 Est GFR ( Amer) 97.2 Est GFR (Non-Af Amer) 83.9 BUN/Creatinine Ratio 18.7 Glucose 167 H POC Glucose Calcium 9.8 Total Bilirubin 0.6 AST 14 ALT 12 Alkaline Phosphatase 81 Troponin I High Sens 7.7 Total Protein 7.6 Albumin 4.2 Globulin 3.4 Albumin/Globulin Ratio 1.2 Triglycerides Cholesterol LDL Cholesterol, Calc VLDL Cholesterol, Calc HDL Cholesterol Cholesterol/HDL Ratio Lipase 28 SARS-CoV-2, RNA, NAAT 11/02/21 11/02/21 11/03/21 19:15 22:29 00:56 WBC RBC Hgb Hct MCV MCH MCHC RDW Std Deviation RDW Coeff of Sebastian Plt Count MPV Immature Gran % (Auto) Neut % (Auto) Lymph % (Auto) Gray % (Auto) Eos % (Auto) Baso % (Auto) Neut # (Auto) Lymph # (Auto) Gray # (Auto) Eos # (Auto) Baso # (Auto) Immature Gran # (Auto) PT INR APTT PTT Ratio Sodium Potassium Chloride Carbon Dioxide Anion Gap BUN Creatinine Est Cr Clr Drug Dosing Est GFR ( Amer) Est GFR (Non-Af Amer) BUN/Creatinine Ratio Glucose POC Glucose 232 H Calcium Total Bilirubin AST ALT Alkaline Phosphatase Troponin I High Sens 9.9 Total Protein Albumin Globulin Albumin/Globulin Ratio Triglycerides Cholesterol LDL Cholesterol, Calc VLDL Cholesterol, Calc HDL Cholesterol Cholesterol/HDL Ratio Lipase SARS-CoV-2, RNA, NAAT NEGATIVE 11/03/21 11/03/21 11/03/21 05:19 05:19 05:19 WBC 6.47 RBC 4.92 Hgb 15.0 Hct 45.0 MCV 91.5 MCH 30.5 MCHC 33.3 RDW Std Deviation 45.4 RDW Coeff of Sebastian 13.4 Plt Count 197 MPV 8.8 L Immature Gran % (Auto) 0.5 Neut % (Auto) 56.0 Lymph % (Auto) 28.4 Gray % (Auto) 12.2 Eos % (Auto) 2.0 Baso % (Auto) 0.9 Neut # (Auto) 3.62 Lymph # (Auto) 1.84 Gray # (Auto) 0.79 Eos # (Auto) 0.13 Baso # (Auto) 0.06 Immature Gran # (Auto) 0.03 H PT INR APTT 24.6 PTT Ratio 0.9 Sodium 140 Potassium 4.2 Chloride 105 Carbon Dioxide 31 Anion Gap 4 BUN 18 Creatinine 1.05 Est Cr Clr Drug Dosing 85.6 Est GFR ( Amer) 81.8 Est GFR (Non-Af Amer) 70.6 BUN/Creatinine Ratio 17.1 Glucose 117 H POC Glucose Calcium 9.0 Total Bilirubin AST ALT Alkaline Phosphatase Troponin I High Sens 10.9 Total Protein Albumin Globulin Albumin/Globulin Ratio Triglycerides 189 H Cholesterol 99 LDL Cholesterol, Calc 26 VLDL Cholesterol, Calc 38 H HDL Cholesterol 35 Cholesterol/HDL Ratio 2.8 Lipase SARS-CoV-2, RNA, NAAT 11/03/21 07:30 WBC RBC Hgb Hct MCV MCH MCHC RDW Std Deviation RDW Coeff of Sebastian Plt Count MPV Immature Gran % (Auto) Neut % (Auto) Lymph % (Auto) Gray % (Auto) Eos % (Auto) Baso % (Auto) Neut # (Auto) Lymph # (Auto) Gray # (Auto) Eos # (Auto) Baso # (Auto) Immature Gran # (Auto) PT INR APTT PTT Ratio Sodium Potassium Chloride Carbon Dioxide Anion Gap BUN Creatinine Est Cr Clr Drug Dosing Est GFR ( Amer) Est GFR (Non-Af Amer) BUN/Creatinine Ratio Glucose POC Glucose 121 H Calcium Total Bilirubin AST ALT Alkaline Phosphatase Troponin I High Sens Total Protein Albumin Globulin Albumin/Globulin Ratio Triglycerides Cholesterol LDL Cholesterol, Calc VLDL Cholesterol, Calc HDL Cholesterol Cholesterol/HDL Ratio Lipase SARS-CoV-2, RNA, NAAT Diagnostic Findings Echocardiogram 11/16/2020 The qualitative LV ejection fraction is 50-54% (normal). The basal inferior wall is mildly hypokinetic. The regional left ventricular wall motion is otherwise normal. The left ventricular diastolic function is mildly abnormal (grade I). The proximal ascending thoracic aorta is normal sized. The aortic root is moderately enlarged, 4.8 cm (1) Chest pain Chest pain type: unspecified Qualified Code(s): R07.9 - Chest pain, unspeci fied
--- NOTE | 2021-11-03 13:49 | Hospitalist Progress Note ---
Date of Service November 03, 2021 Assessment & Plan (1) Palpitations: (2) CAD in [place] artery: (3) HTN (hypertension): (4) Dyslipidemia: (5) Diabetes mellitus, type II: (6) GERD (gastroesophageal reflux disease): (7) BPH (benign prostatic hyperplasia): (8) Sleep apnea: (9) Obesity: Plan: History, PE, med rec completed by Haylie Solorzano PA-C. Assessment and plan per Dr. Churchill. See addendum Plan 71-year-old male with PMH of HTN, dyslipidemia, CAD status post stent to RCA 2004, aortic root enlargement, DM II, chronic BLE edema, venous insufficiency, obesity, BPH, RICK intolerant to CPAP, presented to ER 11/02 with complaint of chest discomfort. Patient reports 1 to 2-week of feeling funny sensation in the chest along with shortness of breath during exertion which particularly became worse yesterday and hence presented to the hospital. Yesterday he also had some lightheadedness and jaw pain [which he likened to his prior [place] episode] along with funny sensation in the heart and dyspnea. He is being managed for the following: Chest discomfort rule out ACS Patient presented with palpitation/RAMIREZ/jaw pain [see above] Admitting electrolytes/troponin trend WNL. Admitting EKG with first-degree AV block, no acute ST or T changes noted. Follow-up EKG with sinus bradycardia with first-degree AV block, no acute ST or T changes noted. 11/03 echo: Ejection fraction 50 to 55%, grade 1 diastolic dysfunction, moderate aortic root dilatation, mild concentric LVH. Mildly hypokinetic inferior and posterior wall wall at the base and mid level. Admitting CXR with no acute finding, admitting CTA chest with no PE. Monitor over telemetry, discussed with cardiology, plan for heart cath on Friday. Continue current home meds. Pulmonary nodule: Admitting CTA chest with 2 pathologically indeterminant pulmonary and pleural-based nodules measuring up to 10 mm, follow-up CT scan of chest in 3 to 6 months needed. Other chronic medical conditions: HLD, HTN, CAD, DM2, COPD, RICK/CPAP noncompliance, past tobacco abuse --->>> continue/resume home meds as and when able. DVT prophylaxis: Lovenox subcu Full code Admission and Anticipated Discharge Date Admission Date: November 02, 2021 Subjective Patient seen and examined at bedside as a follow-up of chest discomfort. Patient was sitting up in bed, on room air, NAD, denies further chest discomfort while in hospital but states that if he walks around he might get it. Patient denies any headache/dizziness/sore throat/cough/fever/belly pain/acute changes in his bowel or bladder habits/other review of symptoms. Reports eating okay and moving bowels okay. Physical Exam Physical Exam: GENERAL: Alert and oriented x3. NAD, on RA. Class II obese HEENT: No pallor, no icterus. Pupils equal, round and reactive to light. Oral mucosa moist. NECK: No JVD, no neck masses. HEART: S1 and S2 heard. Regular rate and rhythm. No murmur, no gallop. RESPIRATORY SYSTEM: Normal AP diameter. No accessory muscle use. No wheezing, no crackles. ABDOMEN: Soft, bowel sounds present, nontender, no distention. CENTRAL NERVOUS SYSTEM: No facial droop. Speech is clear. Obeys simple commands. Moves extremities. EXTREMITIES: No edema, no erythema seen. BLE chronic skin changes noted. Results & Data Results & Data ([facility]) Vital Signs (Past 12 Hours) Vital Signs Temp Pulse Pulse Resp BP Pulse Ox O2 Del Method 11/03/21 11:30 36.8 C 52 L 20 117/70 96 Room Air 11/03/21 07:59 50 L 11/03/21 07:59 Room Air 11/03/21 06:52 36.6 C 51 L 18 130/76 94 Room Air 11/03/21 03:02 36.7 C 61 18 128/65 95 Room Air 11/03/21 01:50 59 L
[2021-11-03] MEDS ORDERED: POLYETHYLENE (MIRALAX) 17 GM PACK PO STA (22:53)
[2021-11-03] MEDS ORDERED: POLYETHYLENE (MIRALAX) 17 GM PACK PO PRN (22:53)
--- NOTE | 2021-11-03 23:13 | Electrocardiogram Report ---
Test Reason : Blood Pressure : / mmHG Vent. Rate : 058 BPM Atrial Rate : 058 BPM P-R Int : 232 ms QRS Dur : 124 ms QT Int : 436 ms P-R-T Axes : 060 -01 009 degrees QTc Int : 428 ms Sinus bradycardia with 1st degree A-V block Possible Inferior infarct (cited on or before 02-NOV-2021) Abnormal ECG When compared with ECG of 02-NOV-2021 19:03, No significant change was found Confirmed by Robert Heck ([id number]) on 11/03/2021 11:13:01 PM Referred By: REFERRED SELF Confirmed By:Robert Heck
[2021-11-04] MEDS: DOCUSATE SODIUM/SENNA 50/8.6MG TAB PO SCH ×2 (00:35→08:13)
[2021-11-04 07:37] LABS: Calcium 9.4 mg/dl (8.5-10.1); Magnesium 2.1 mg/dl (1.7-2.4); Potassium 4.8 mmol/L (3.5-5.1)
[2021-11-04 07:42] LABS: BUN Creatinine Ratio 19.1 (10-20); Creatinine Clr Calc Pharmacy 99.5 ml/min; Est GFR (Non-African American) 85.4 ml/min
[2021-11-04] MEDS: INSULIN ASPART PER UNIT SC SCH ×4 (08:10→21:39)
[2021-11-04] MEDS: LANTUS PER UNIT CHARGE SQ SCH (08:10)
[2021-11-04] MEDS: ASPIRIN 81 MG ECTAB PO SCH (08:12)
[2021-11-04] MEDS: EZETIMIBE 10 MG TABLET PO SCH (08:12)
[2021-11-04] MEDS: DOXAZosin MESYLATE 4 MG TAB PO SCH (08:12)
[2021-11-04] MEDS: PANTOprazole 40 MG TAB PO SCH (08:12)
[2021-11-04] MEDS: lisinopril 2.5 MG TAB PO SCH (08:12)
[2021-11-04] MEDS: ENOXAPARIN INJ 40 MG/0.4 ML SYR SQ SCH (08:12)
--- NOTE | 2021-11-04 13:01 | Cardiology Progress Note ---
Date of Service November 04, 2021 Assessment & Plan (1) Chest pain: (2) Abnormal EKG: (3) HTN (hypertension): (4) Dyslipidemia: (5) Sleep apnea: Plan Patient is a 71-year-old male with known coronary artery disease with prior inferior myocardial infarction 2005 with chronic stable class I 2 angina pectoris in the past. He presents now noting a sudden change in exercise tolerance in the last 1 to 2 months with symptoms concerning for angina at low- level exertion at home date of admission. He noted chest pressure jaw pressure and shortness of breath as well as fluctuations heart rate and blood pressure EKGs demonstrated transient interventricular conduction delay but no acute ST segment changes Initial troponins negative Echocardiogram reflects hypokinesis inferior posterior wall slightly more pronounced than reported on prior studies no acute finding Symptoms are concerning for progression in anginal pattern. Discussed options of management with patient. Would recommend proceeding to coronary angiography with tentative procedure scheduled for Friday. Other options of medical therapy with stress testing discussed though patient already on excellent medical therapies with breakthrough symptom Patient agreeable we will follow with patient in hospital 11/04/2021. Once again as above. Some shortness of breath while ambulatory in room overnight. No acute chest pain or discomfort. Plan diagnostic coronary angiography in a.m. Procedure and risks explained in detail to the patient IV hydration ordered for this evening N.p.o. after mid Admission and Anticipated Discharge Date Admission Date: November 03, 2021 Subjective Patient seen and examined, chart, medications, telemetry reviewed. No chest discomfort overnight some shortness of breath when ambulatory in the room. No dizziness or lightheadedness no bleeding difficulties. Physical Exam Constitutional: + obese; no acute distress Eyes: PERRL, conjunctivae normal, anicteric sclerae ENMT: external ear and nose normal, oropharynx normal Neck: trachea midline, no thyromegaly + thick neck Respiratory: normal respiratory effort, lungs clear to auscultation Cardiovascular: Rate/Rhythm: regular rate and regular rhythm Heart Sounds: normal S1 and normal S2; no murmur Vessels: no JVD Extremities: no edema Gastrointestinal (Abdomen): normal bowel sounds, soft, nontender, no hepatosplenomegaly Musculoskeletal: Extremities: + chronic stasis changes Skin: + erythema (Bilateral lower extremity) Neurologic: PERRL, EOMI, accommodation nl, no face palsy, no dysarthria Results & Data ([facility]) Vital Signs (Past 12 Hours) Vital Signs Temp Pulse Pulse Resp BP Pulse Ox O2 Del Method 11/04/21 12:19 36.7 C 68 14 135/85 97 Room Air 11/04/21 08:48 54 L 11/04/21 07:30 36.4 C L 50 L 16 131/80 95 Room Air 11/04/21 04:14 57 L 11/04/21 02:53 36.4 C L 52 L 16 120/76 92 Room Air Laboratory Results Laboratory Results - last 24 hr 11/03/21 11/03/21 11/04/21 16:09 20:18 06:00 Sodium 141 Potassium 4.8 Chloride 106 Carbon Dioxide 32 Anion Gap 3 BUN 17 Creatinine 0.89 Est Cr Clr Drug Dosing 99.5 Est GFR ( Amer) 99.0 Est GFR (Non-Af Amer) 85.4 BUN/Creatinine Ratio 19.1 Glucose 152 H POC Glucose 145 H 137 H Calcium 9.4 Magnesium 2.1 11/04/21 11/04/21 07:09 11:33 Sodium Potassium Chloride Carbon Dioxide Anion Gap BUN Creatinine Est Cr Clr Drug Dosing Est GFR ( Amer) Est GFR (Non-Af Amer) BUN/Creatinine Ratio Glucose POC Glucose 157 H 136 H Calcium Magnesium (1) Chest pain Chest pain type: unspecified Qualified Code(s): R07.9 - Chest pain, unspecified
--- NOTE | 2021-11-04 16:21 | Hospitalist Progress Note ---
Date of Service November 04, 2021 Assessment & Plan (1) Palpitations: (2) CAD in [place] artery: (3) HTN (hypertension): (4) Dyslipidemia: (5) Diabetes mellitus, type II: (6) GERD (gastroesophageal reflux disease): (7) BPH (benign prostatic hyperplasia): (8) Sleep apnea: (9) Obesity: Plan: History, PE, med rec completed by Haylie Solorzano PA-C. Assessment and plan per Dr. Churchill. See addendum Plan 71-year-old male with PMH of HTN, dyslipidemia, CAD status post stent to RCA 2004, aortic root enlargement, DM II, chronic BLE edema, venous insufficiency, obesity, BPH, RICK intolerant to CPAP, presented to ER 11/02 with complaint of chest discomfort. Patient reports 1 to 2-week of feeling funny sensation in the chest along with shortness of breath during exertion which particularly became worse yesterday and hence presented to the hospital. Yesterday he also had some lightheadedness and jaw pain [which he likened to his prior [place] episode] along with funny sensation in the heart and dyspnea. He is being managed for the following: Chest discomfort rule out ACS Patient presented with palpitation/RAMIREZ/jaw pain [see above] Admitting electrolytes/troponin trend WNL. Admitting EKG with first-degree AV block, no acute ST or T changes noted. Follow-up EKG with sinus bradycardia with first-degree AV block, no acute ST or T changes noted. 11/03 echo: Ejection fraction 50 to 55%, grade 1 diastolic dysfunction, moderate aortic root dilatation, mild concentric LVH. Mildly hypokinetic inferior and posterior wall wall at the base and mid level. Admitting CXR with no acute finding, admitting CTA chest with no PE. Monitor over telemetry, discussed with cardiology, plan for heart cath tomorrow. Continue current home meds. Patient on gentle IV fluids. Pulmonary nodule: Admitting CTA chest with 2 pathologically indeterminant pulmonary and pleural-based nodules measuring up to 10 mm, follow-up CT scan of chest in 3 to 6 months needed. Other chronic medical conditions: HLD, HTN, CAD, DM2, COPD, RICK/CPAP noncompliance, past tobacco abuse --->>> continue/resume home meds as and when able. DVT prophylaxis: Lovenox subcu Full code Admission and Anticipated Discharge Date Admission Date: November 03, 2021 Subjective Patient seen and examined at bedside as a follow-up of chest discomfort. Patient was lying in bed, on room air, NAD, denies further chest discomfort while in hospital. But reports some shortness of breath with ambulation. Patient denies any headache/dizziness/sore throat/cough/fever/belly pain/acute changes in his bowel or bladder habits/other review of symptoms. Reports eating okay and moving bowels okay. N.p.o. midnight for possible heart cath tomorrow. Physical Exam Physical Exam: GENERAL: Alert and oriented x3. NAD, on RA. Class II obese HEENT: No pallor, no icterus. Pupils equal, round and reactive to light. Oral mucosa moist. NECK: No JVD, no neck masses. HEART: S1 and S2 heard. Regular rate and rhythm. No murmur, no gallop. RESPIRATORY SYSTEM: Normal AP diameter. No accessory muscle use. No wheezing, no crackles. ABDOMEN: Soft, bowel sounds present, nontender, no distention. CENTRAL NERVOUS SYSTEM: No facial droop. Speech is clear. Obeys simple c ommands. Moves extremities. EXTREMITIES: Trace BLE edema, no erythema seen. BLE chronic skin changes noted. Results & Data Results & Data ([facility]) Vital Signs (Past 12 Hours) Vital Signs Temp Pulse Pulse Resp BP Pulse Ox O2 Del Method 11/04/21 15:32 55 L 11/04/21 12:19 36.7 C 68 14 135/85 97 Room Air 11/04/21 08:48 54 L 11/04/21 07:30 36.4 C L 50 L 16 131/80 95 Room Air
[2021-11-04] MEDS: clonazePAM 1 MG TAB PO PRN (23:48)
[2021-11-05] MEDS ORDERED: SODIUM CHLORIDE 0.9% 1000ML 1,000 ML IV SCH (00:01)
[2021-11-05 06:38] LABS: BUN Creatinine Ratio 15.6 (10-20); Calcium 8.9 mg/dl (8.5-10.1); Est GFR (African American) 91.2 ml/min; Est GFR (Non-African American) 78.7 ml/min
[2021-11-05] MEDS: PANTOprazole 40 MG TAB PO SCH (08:25)
[2021-11-05] MEDS: DOXAZosin MESYLATE 4 MG TAB PO SCH (08:25)
[2021-11-05] MEDS: ASPIRIN 81 MG ECTAB PO SCH (08:26)
[2021-11-05] MEDS: lisinopril 2.5 MG TAB PO SCH (08:26)
[2021-11-05] MEDS: EZETIMIBE 10 MG TABLET PO SCH (08:26)
[2021-11-05] MEDS: INSULIN ASPART PER UNIT SC SCH ×4 (08:29→20:42)
[2021-11-05] MEDS: LANTUS PER UNIT CHARGE SQ SCH (08:30)
--- NOTE | 2021-11-05 09:25 | Pre Anesthesia Assessment ---
Date of Service November 05, 2021 Pre Sedation Assessment Vital Signs Temp Pulse Pulse Resp BP BP Pulse Ox 11/05/21 07:46 36.5 C 96 H 136/71 96 11/05/21 05:00 36.5 C 52 L 18 135/70 97 11/04/21 23:47 36.7 C 54 L 18 137/72 97 11/04/21 23:00 81 11/04/21 20:00 11/04/21 20:00 36.5 C 69 17 130/82 96 11/04/21 16:39 36.6 C 74 16 148/90 H 94 11/04/21 15:32 55 L 11/04/21 12:19 36.7 C 68 14 135/85 97 O2 Del Method 11/05/21 07:46 Room Air 11/05/21 05:00 Room Air 11/04/21 23:47 Room Air 11/04/21 23:00 11/04/21 20:00 Room Air 11/04/21 20:00 Room Air 11/04/21 16:39 Room Air 11/04/21 15:32 11/04/21 12:19 Room Air Cardiovascular + regular rate and + regular rhythm + femoral pulses present and + radial pulses present; no JVD + edema (Trace) Respiratory normal respiratory effort, lungs clear to auscultation Pre-Sedation Airway Assessment Smoking Status: Former smoker Hx Sleep Apnea: Yes Hx Difficult Intubation: No Short, Thick Neck: No Thyromental Distance: > or= 3.5 Finger Breadths Oral Cavity: + Dentures Mallampati Class: III ASA: ASA3 NPO Status Date of Last Intake of Fluids: 11/05/21 Time of Last Intake of Fluids: 06:00 Date of Last Intake of Solid Food: 11/04/21 Procedure Planning Contraindications for Sedation: none Current Medications Reviewed: Yes Notes The planned sedation has been discussed with the patient. Informed Consent was obtained. I have identified the patient, determined the appropriateness of sedation and have assessed the patient immediately prior to the procedure. All medicine(s) and interventions are by my order.
[2021-11-05] MEDS ORDERED: ADENOSINE IV SOLN 3 MG/ML 20 ML VIAL IV ONE (10:05)
--- NOTE | 2021-11-05 10:26 | Cardiac Catheterization ---
Cardiac Cath Procedure Full Procedure Date November 05, 2021 Pre-Procedure Diagnosis Pre-Procedure Diagnosis: Angina AUC Score AUC Score: 8 Procedure(s) Performed Procedure(s) Performed: Coronary Angiography and Left Heart Cath Licensing Services Clerk Brodie Carson MD I attest to the content of the Intraoperative Record and any orders documented therein. Any exceptions are noted below. ACC Data: Neurological Surgeon Cardiac Status Clinical evaluation leading to the procedure Diagnostic Physicians Name: Brodie Carson MD
--- NOTE | 2021-11-05 10:28 | Cardiac Catheterization ---
Cardiac Cath Procedure Full Procedure Date November 05, 2021 Pre-Procedure Diagnosis Pre-Procedure Diagnosis: Angina AUC Score AUC Score: 8 Post-Procedure Diagnosis Post-Procedure Diagnosis: Severe CAD Procedure(s) Performed Procedure(s) Performed: Coronary Angiography and Left Heart Cath Nutritionalist Brodie Carson MD Estimated Blood Loss Estimated Blood Loss: <15cc Medication(s) Medication(s): Fentanyl (12.5 mcg IV), Heparin (5000 units IV), Lidocaine 1% (Local infiltration access site), Nicardipine (250 mcg intra-arterial after arterial sheath insertion) and Versed (1 mg IV) Summary of Findings Impression: Significant distal right coronary artery stenosis acute margin to proximal to bifurcation distal to prior mid vessel stent Moderate irregularities in other vasculature with 50% mid LAD stenosis Extremely long left main with bulbous trifurcation distal end Procedure: Left heart catheterization, coronary angiography Indications: New onset angina, known coronary disease Access: Right radial artery Catheters: 5 [place] long glide radial sheath, 5 [place] 5 [place] JL 3.5 Hemodynamics Rest Ao:: 131/59/84 Final Ao: 123/52/81 LV: 124/0/1 Recommendations Recommendations: PCI without planned CABG Radiation Exposure (mGy) 1672 Contrast (mls) 95 Fluids (cc crystalloids) Fluids (cc crystalloids): 75 Anesthesia Start time: 939, stop time: 1013 Procedural Complication(s) None Disposition Patient referred for PCI I attest to the content of the Intraoperative Record and any orders documented therein. Any exceptions are noted below. ACC Data: Procurement Technician Cardiac Status Clinical evaluation leading to the procedure CAD Presenation: Stable angina Anginal Classification: CCS III Heart Failure: No Cardiogenic Shock within 24 Hours: No Cardiac Arrest within 24 Hours: No Imaging Studies Past 6 Months: Yes Stress Studies Past 6 Months: No Standard Exercise Test: No Stress Echocardiogram: No Stress Testing w/SPECT MPI: No Cardiac CTA: No Coronary Anatomy Dominant: Right Left Main (% Stenosis): Mid (Mild irregularity) and Normal (Extremely long with bulbous trifurcation at its distal end) LAD (% Stenosis): Ostial (20) and Mid (50) Circumflex (% Stenosis): Ostial (30) RCA (% Stenosis): Mid (Patent stent) and Distal (90% stenosis with long area of complex disease) Ramus (% Stenosis): Proximal (Moderate ectasia with bifurcating vessel distally) Left Ventricular Angiography EF (%): N/A Diagnostic Physicians Name: Brodie Carson MD Status: Urgent Closure Device Percutaneous Entry Location: Radial Closure Device: Radial Band Recommendations: PCI without planned CABG
--- NOTE | 2021-11-05 10:28 | Cardiac Catheterization ---
Cardiac Cath Procedure Brief Procedure Date November 05, 2021 Pre-Procedure Diagnosis Pre-Procedure Diagnosis: Angina AUC Score AUC Score: 8 Post-Procedure Diagnosis Post-Procedure Diagnosis: Severe CAD Procedure(s) Performed Procedure(s) Performed: Coronary Angiography and Left Heart Cath Contact Acid Plant Operator Brodie Carson MD Estimated Blood Loss Estimated Blood Loss: <15cc Medication(s) Medication(s): Fentanyl (12.5 mcg IV), Heparin (5000 units IV), Lidocaine 1% (Local infiltration access site), Nicardipine (250 mcg intra-arterial after arterial sheath insertion) and Versed (1 mg IV) Recommendations Recommendations: PCI without planned CABG Procedural Complication(s) None
[2021-11-05] MEDS ORDERED: MIDAZOLAM HCL 1 MG/ML 2ML VIAL ONE ×2 (10:48→11:30)
[2021-11-05] MEDS ORDERED: HEPARIN (PORCINE) 1000 UNIT/ML 10 ML (CATH LAB USE ONLY) ONE (10:59)
[2021-11-05] MEDS ORDERED: fentaNYL citrate 100 MCG/2 ML VIAL ONE (11:30)
[2021-11-05] MEDS ORDERED: CLOPIDOGREL BISULFATE 300 MG TAB ONE (12:11)
[2021-11-05] MEDS ORDERED: LIDOCAINE 1%/EPINEPHRINE 1:100,000 50 ML VIAL ONE (12:15)
[2021-11-05] MEDS ORDERED: NITROGLYCERIN SL 0.4 MG/TAB TAB ONE (12:40)
[2021-11-05] MEDS ORDERED: ATROPINE SULFATE 0.1 MG/ML 10ML SYR IV ONE (12:41)
--- NOTE | 2021-11-05 12:58 | Post Anesthesia Assessment ---
Date of Service November 05, 2021 Post Sedation Assessment Vital Signs Temp Pulse Pulse Resp BP Pulse Ox O2 Del Method 11/05/21 12:45 50 L 16 126/78 98 Room Air 11/05/21 12:30 48 L 16 128/76 98 Room Air 11/05/21 12:20 48 L 16 125/72 98 Room Air 11/05/21 07:46 97.7 F 96 H 136/71 96 Room Air 11/05/21 05:00 97.7 F 52 L 18 135/70 97 Room Air 11/04/21 23:47 98.1 F 54 L 18 137/72 97 Room Air 11/04/21 23:00 81 11/04/21 20:00 Room Air 11/04/21 20:00 97.7 F 69 17 130/82 96 Room Air 11/04/21 16:39 97.9 F 74 16 148/90 H 94 Room Air 11/04/21 15:32 55 L Recovery Score Activity: Moves 4 extremities Respiration: Deep Breath/Cough Circulation: +/-20% PreAnes Value Consciousness: Fully Awake Oxygen Saturation: > 92% On Room Air Post Anesthesia Score: 10 Discharge Sedation Level of Care: Fast Track Phase II Post Sedation Plan On clinical assessment, the patient appears to have tolerated the sedation w ithout complications. Patient is recovering as anticipated. Patient will continue to be monitored by nursing and may be discharged when sedation discharge criteria are met per below protocol. Upon Completions of procedure up to 15 minutes continue every 5 minute vital signs and the P.A.R. score; then discharge to a Phase I or Fast Track to Phase II per the following guidelines: * Discharge Patient to appropriate Phase II area if PAR is 8 or greater or return to pre- procedure baseline. The post - procedure orders will be as directed. * If PAR score is less than 8 or not return to pre-procedure baseline then patient will follow Phase I monitoring till PAR is reached for Phase II. The Phase I may be done in procedure room or may call to secure a Phase I area. * If naloxone or flumazenil are used for reversal, hold in Phase I for continued monitoring from when last reversal dose was given for a minimum of 60 minutes or longer pending the nurse and/or physician discretion of patient condition before discharge to Phase II. Please call the Sedation Physician to re-evaluate and complete post-note for discharge to Phase II area. Do NOT discharge from procedure sedation or Phase 1 until post- sedation evaluation note is complete by procedure /sedation MD Sedation Discharge Instructions to be given to the patient at discharge to home.
--- NOTE | 2021-11-05 13:00 | Post Operative Brief Note ---
Cardiology Brief Post Op Date of Surgery November 05, 2021 Pre & Post Diagnosis Coronary artery disease Procedure PCI to distal RCA with 2 overlapping SABAS (3.0 x 8, 2.5 x 30 [place]) - RT Groin [employer] Treasury Assistant Rajeev Gilbert MD Panel Maker Showers Estimated Blood Loss 20 Findings Consistent with Post-Op Diagnosis Anesthesia Type RN Sedation Complications none Disposition Accompanied Patient To Recovery: No Disposition: PCU Overlapping Procedure I was present for: the critical portions of procedure. I was immediately available: during the entire case.
--- NOTE | 2021-11-05 13:44 | Hospitalist Progress Note ---
Date of Service November 05, 2021 Assessment & Plan (1) Palpitations: (2) CAD in [place] artery: (3) HTN (hypertension): (4) Dyslipidemia: (5) Diabetes mellitus, type II: (6) GERD (gastroesophageal reflux disease): (7) BPH (benign prostatic hyperplasia): (8) Sleep apnea: (9) Obesity: Plan: History, PE, med rec completed by Haylie Solorzano PA-C. Assessment and plan per Dr. Churchill. See addendum Plan 71-year-old male with PMH of HTN, dyslipidemia, CAD status post stent to RCA 2004, aortic root enlargement, DM II, chronic BLE edema, venous insufficiency, obesity, BPH, RICK intolerant to CPAP, presented to ER 11/02 with complaint of chest discomfort. Patient reports 1 to 2-week of feeling funny sensation in the chest along with shortness of breath during exertion which particularly became worse yesterday and hence presented to the hospital. Yesterday he also had some lightheadedness and jaw pain [which he likened to his prior GA episode] along with funny sensation in the heart and dyspnea. He is being managed for the following: Chest discomfort rule out ACS s/p Stent placement in RCA Patient presented with palpitation/RAMIREZ/jaw pain [see above] Admitting electrolytes/troponin trend WNL. Admitting EKG with first-degree AV block, no acute ST or T changes noted. Follow-up EKG with sinus bradycardia with first-degree AV block, no acute ST or T changes noted. 11/03 echo: Ejection fraction 50 to 55%, grade 1 diastolic dysfunction, moderate aortic root dilatation, mild concentric LVH. Mildly hypokinetic inferior and posterior wall wall at the base and mid level. Admitting CXR with no acute finding, admitting CTA chest with no PE. Plan:patient will likely need dual antiplatelet agents for one year. He is currently on lisinopril 2.5 mg once daily. observe him overnight and possible discharge in a.m. Pulmonary nodule: Admitting CTA chest with 2 pathologically indeterminant pulmonary and pleural-based nodules measuring up to 10 mm, follow-up CT scan of chest in 3 to 6 months needed. Patient's last CT chest without contrast was don e in 11/2020; no nodules were seen. Discussed the findings with the patient and daughter at bedside. He says he will follow-up with his primary care doctor and repeat the CT scan. Other chronic medical conditions: HLD, HTN, CAD, DM2, COPD, RICK/CPAP noncompliance, past tobacco abuse --->>> Home medication resumed DVT prophylaxis: Lovenox subcu Full code Admission and Anticipated Discharge Date Admission Date: November 03, 2021 Subjective Patient seen and examined at bedside. He is sitting up on the chair; not in any distress. He denies any episode of chest pain or shortness of breath. Telemetry overnight shows sinus bradycardia. No pauses. Review of Systems Review of Systems: All systems reviewed & are unremarkable except as noted in Subjective Physical Exam Physical Exam: GENERAL: Alert and oriented x3. NAD, on RA. Class II obese HEENT: No pallor, no icterus. Pupils equal, round and reactive to light. Oral mucosa moist. NECK: No JVD, no neck masses. HEART: S1 and S2 heard. Regular rate and rhythm. No murmur, no gallop. RESPIRATORY SYSTEM: Normal AP diameter. No accessory muscle use. No wheezing, no crackles. ABDOMEN: Soft, bowel sounds present, nontender, no distention. CENTRAL NERVOUS SYSTEM: No facial droop. Speech is clear. Obeys simple commands. Moves extremities. EXTREMITIES: Trace BLE edema, no erythema seen. BLE chronic skin changes noted. Results & Data Results & Data ([facility]) Vital Signs (Past 12 Hours) Vital Signs Temp Pulse Resp BP Pulse Ox O2 Del Method 11/05/21 12:45 50 L 16 126/78 98 Room Air 11/05/21 12:30 48 L 16 128/76 98 Room Air 11/05/21 12:20 48 L 16 125/72 98 Room Air 11/05/21 07:46 36.5 C 96 H 136/71 96 Room Air 11/05/21 05:00 36.5 C 52 L 18 135/70 97 Room Air Laboratory Results Laboratory Results WBC 6.47 K/ul (4.8-10.8) 11/03/21 05:19 RBC 4.92 M/uL (4.63-6.08) 11/03/21 05:19 Hgb 15.0 g/dl (14.0-18.0) 11/03/21 05:19 Hct 45.0 % (40.1-51.0) 11/03/21 05:19 MCV 91.5 fL (80.0-100.0) 11/03/21 05:19 MCH 30.5 pg (25.0-34.0) 11/03/21 05:19 MCHC 33.3 g/dL (32.0-36.0) 11/03/21 05:19 RDW Std Deviation 45.4 fL (36.4-46.3) 11/03/21 05:19 RDW Coeff of Sebastian 13.4 % (11.5-14.5) 11/03/21 05:19 Plt Count 197 K/uL (130-400) 11/03/21 05:19 MPV 8.8 fL (9.4-12.4) L 11/03/21 05:19 Immature Gran % (Auto) 0.5 % 11/03/21 05:19 Neut % (Auto) 56.0 % 11/03/21 05:19 Lymph % (Auto) 28.4 % 11/03/21 05:19 [place] % (Auto) 12.2 % 11/03/21 05:19 Eos % (Auto) 2.0 % 11/03/21 05:19 Baso % (Auto) 0.9 % 11/03/21 05:19 Neut # (Auto) 3.62 K/uL (1.4-6.5) 11/03/21 05:19 Lymph # (Auto) 1.84 K/uL (1.2-3.4) 11/03/21 05:19 [place] # (Auto) 0.79 K/uL (0.24-0.82) 11/03/21 05:19 Eos # (Auto) 0.13 K/uL (0-0.50) 11/03/21 05:19 Baso # (Auto) 0.06 K/uL (0-0.2) 11/03/21 05:19 Immature Gran # (Auto) 0.03 K/uL (0.00-0.02) H 11/03/21 05:19 PT 10.1 Seconds (9.0-12.0) 11/02/21 19:04 INR 0.9 (0.9-1.1) 11/02/21 19:04 APTT 24.6 Seconds (21.0-31.0) 11/03/21 05:19 PTT Ratio 0.9 11/03/21 05:19 Activ Coag Time Kaolin 202 SECONDS (94-140) H 11/05/21 12:00 Sodium 139 mmol/L (136-145) 11/05/21 05:41 Potassium 4.0 mmol/L (3.5-5.1) 11/05/21 05:41 Chloride 105 mmol/L (98-107) 11/05/21 05:41 Carbon Dioxide 30 mmol/L (21-32) 11/05/21 05:41 Anion Gap 4 (3-11) 11/05/21 05:41 BUN 15 mg/dl (6-23) 11/05/21 05:41 Creatinine 0.96 mg/dl (0.6-1.4) 11/05/21 05:41 Est Cr Clr Drug Dosing 92.0 ml/min 11/05/21 05:41 Est GFR ( Amer) 91.2 ml/min 11/05/21 05:41 Est GFR (Non-Af Amer) 78.7 ml/min 11/05/21 05:41 BUN/Creatinine Ratio 15.6 (10-20) 11/05/21 05:41 Glucose 151 mg/dl (70-99(Fasting)) H 11/05/21 05:41 POC Glucose 158 mg/dl (70-99) H 11/05/21 07:13 Calcium 8.9 mg/dl (8.5-10.1) 11/05/21 05:41 Magnesium 2.0 mg/dl (1.7-2.4) 11/05/21 05:41 Total Bilirubin 0.6 mg/dl (0.2-1.0) 11/02/21 19:04 AST 14 U/L (13-39) 11/02/21 19:04 ALT 12 U/L (7-52) 11/02/21 19:04 Alkaline Phosphatase 81 U/L (34-104) 11/02/21 19:04 Troponin I High Sens 10.9 pg/ml (0-20) 11/03/21 05:19 Total Protein 7.6 gm/dl (6.0-8.3) 11/02/21 19:04 Albumin 4.2 gm/dl (3.4-5.0) 11/02/21 19:04 Globulin 3.4 gm/dl (2.5-4.0) 11/02/21 19:04 Albumin/Globulin Ratio 1.2 (0.9-2) 11/02/21 19:04 Triglycerides 189 mg/dl (0-150) H 11/03/21 05:19 Cholesterol 99 mg/dl (0-200) 11/03/21 05:19 LDL Cholesterol, Calc 26 mg/dl 11/03/21 05:19 VLDL Cholesterol, Calc 38 mg/dl (0-30) H 11/03/21 05:19 HDL Cholesterol 35 mg/dl 11/03/21 05:19 Cholesterol/HDL Ratio 2.8 (0-5) 11/03/21 05:19 Lipase 28 U/L (11-82) 11/02/21 19:04 SARS-CoV-2, RNA, NAAT NEGATIVE (NEGATIVE) 11/02/21 19:15 Impressions Chest X-Ray 11/02/21 18:57 SINGLE VIEW CHEST CLINICAL HISTORY: Atypical chest pain. Cough and dyspnea FINDINGS: 2 AP, portable, upright chest radiographs are compared to study dated 02/02/2006. The heart is enlarged noting atherosclerotic calcification of the thoracic aorta. The pulmonary vasculature is noncongested. Chronic interstitial thickening is similar to previous. There is bibasilar scarring/atelectasis. No airspace consolidation or large pleural effusion is identified. No pneumothorax is seen. The skeletal structures are osteopenic. The bony thorax is grossly intact. IMPRESSION: Cardiomegaly with no acute cardiopulmonary abnormality identified. ACT 112: Negative or not required by law. Electronically signed by: Apolinar Ribeiro M.D. 11/02/2021 7:46 PM Chest CTA 11/02/21 22:52 CT ANGIOGRAM OF THE CHEST CLINICAL HISTORY: Dyspnea. Atypical chest pain. COMPARISON STUDY: Chest x-ray dated 11/02/2021. TECHNIQUE: Following the IV administration of 109 cc of Optiray 350, CT angiogram of the chest was performed from the upper abdomen to the thoracic inlet utilizing the pulmonary embolus protocol. Images are reviewed in the axial, sagittal, and coronal planes. 3-D MIPS images are created and assessed. IV contrast was administered without complication. A dose lowering technique was utilized adhering to the principles of ALARA. CT DOSE: 807.06 mGy.cm FINDINGS: Thyroid: Imaged portions of the thyroid gland are normal in size and attenuation. Thoracic aorta: The thoracic aorta is normal in caliber and demonstrates standard 3-vessel arch anatomy. No dissection is seen. Pulmonary vasculature: The pulmonary trunk is normal in caliber. There are no filling defects identified in main, lobar, or segmental pulmonary branches to suggest pulmonary embolus. Heart: The heart is enlarged and without pericardial effusion. The coronary arteries are densely calcified. Lungs and pleural spaces: Emphysematous changes noted. There is no airspace consolidation or pleural effusion. The trachea and central airways are clear. There are bilateral fat-containing Bochdalek hernias. Scarring/atelectasis is seen at both lung bases. A 7 mm pulmonary nodule at the right lung base seen on image #89. A 10 mm pleural-based nodule in the right lower lobe is seen on image #129. Mediastinum: There is no mediastinal lymphadenopathy. [place]: Clear. Axillae: There is no axillary lymphadenopathy. Upper abdomen: There is a small hiatal hernia. Partially visualized upper abdom inal viscera is otherwise within normal limits. Skeletal structures: The skeletal structures are osteopenic. No lytic or blastic bony lesions are seen. Degenerative change is noted in the thoracic spine and shoulders. IMPRESSION: 1. There is no evidence of pulmonary embolus in the main, lobar, or segmental pulmonary arteries. 2. Cardiomegaly and emphysema. 3. There is no airspace consolidation or pleural effusion. 4. There are 2 pathologically indeterminant pulmonary and pleural-based nodules at the right lung base measuring up to 10 mm. These can be followed as per the Fleischner criteria. See below. 5. Additional findings as above. Please refer to below summary of Fleischner criteria recommendations for follow- up of incidental CT nodules (Ro Byrne, Guidelines for management of small pulmonary nodules detected on CT scans: A statement from the Fleischner Society, Radiology 237: [phone].) SOLID NODULES Solitary nodule size: <6 mm * low risk patients: no follow-up needed * high risk patients: optional CT at 12 months Solitary nodule size: 6-8 mm * low risk patients: follow-up at 6-12 months, then consider further follow-up at 18-24 months * high risk patients: initial follow-up CT at 6-12 months and then at 18-24 months if no change Solitary nodule size: >8 mm * either low or high risk patients - consider follow-up CT at 3 months, and/or CT-PET, and/or biopsy Multiple nodules size: <6 mm * low risk patients: no routine follow-up * high risk patients: optional CT at 12 months Multiple nodules size: 6-8 mm * low risk patients: follow-up at 3-6 months, then consider further follow-up at 18-24 months * high risk patients: follow-up at 3-6 months, then at 18-24 months if no change Multiple nodules size: >8 mm * low risk patients: follow-up at 3-6 months, then consider further follow-up at 18-24 months * high risk patients: follow-up at 3-6 months, then at 18-24 months if no change Note: newly detected indeterminate nodule in persons 35 years of age or older. * low risk patients: minimal or absent history of smoking and/or other known risk factors * high risk patients: history of smoking or of other known risk factors (e.g. first degree relative with lung cancer, or exposure to asbestos, radon, uranium) * if a nodule up to 8 mm is partly solid or is ground glass further follow-up is required after 24 months to exclude possible slow growing adenocarcinoma (YOLIE) SUBSOLID NODULES Solitary pure ground-glass nodule * nodule size <6 mm - no CT follow-up required * nodule size >=6 mm - follow-up CT at 6-12 months, then every 2 years until 5 years Solitary part-solid nodule * nodule size <6 mm - no CT follow-up required * nodule size >=6 mm - follow-up CT at 3-6 months. If unchanged, and solid component remains <6 mm, then annual follow-up for 5 years Multiple subsolid nodules * nodule size <6 mm - follow-up CT at 3-6 months, consider further follow-up at 2 and 4 years if stable * nodule size >=6 mm - follow-up CT at 3-6 months, subsequent management based on the most suspicious nodule(s) ACT 112: Negative or not required by law. Electronically signed by: Apolinar Ribeiro M.D. 11/02/2021 11:22 PM
[2021-11-05] MEDS: DOCUSATE SODIUM/SENNA 50/8.6MG TAB PO SCH (13:53)
[2021-11-05] MEDS: ENOXAPARIN INJ 40 MG/0.4 ML SYR SQ SCH (13:53)
--- NOTE | 2021-11-05 13:59 | Cardiology Progress Note ---
Date of Service November 05, 2021 Assessment & Plan (1) Chest pain: (2) Abnormal EKG: (3) HTN (hypertension): (4) Dyslipidemia: (5) Sleep apnea: Plan Patient is a 71-year-old male with known coronary artery disease with prior inferior myocardial infarction 2005 with chronic stable class I 2 angina pectoris in the past. He presents now noting a sudden change in exercise tolerance in the last 1 to 2 months with symptoms concerning for angina at low- level exertion at home date of admission. He noted chest pressure jaw pressure and shortness of breath as well as fluctuations heart rate and blood pressure EKGs demonstrated transient interventricular conduction delay but no acute ST segment changes Initial troponins negative Echocardiogram reflects hypokinesis inferior posterior wall slightly more pronounced than reported on prior studies no acute finding Symptoms are concerning for progression in anginal pattern. Discussed options of management with patient. Would recommend proceeding to coronary angiography with tentative procedure scheduled for Friday. Other options of medical therapy with stress testing discussed though patient already on excellent medical therapies with breakthrough symptom Patient agreeable we will follow with patient in hospital 11/04/2021. Once again as above. Some shortness of breath while ambulatory in room overnight. No acute chest pain or discomfort. Plan diagnostic coronary angiography in a.m. Procedure and risks explained in detail to the patient IV hydration ordered for this evening N.p.o. after mid 11/05/2021: Coronary angiography demonstrated new obstruction of the right coronary artery distal to prior stent and patient referred and underwent elective PCI with good result Right radial and right femoral artery access used. Plan continue follow overnight, dual antiplatelet therapy. Admission and Anticipated Discharge Date Admission Date: November 03, 2021 Subjective Patient seen and examined both prior and after cardiac cath and intervention. No cardiac complaints and doing well after procedure. Only issue is chronic orthopedic complaints of right shoulder discomfort. Tolerated cardiac catheterization well. No chest pains or shortness of breath currently. Review of Systems Review of Systems: All systems reviewed & are unremarkable except as noted in Subjective Physical Exam Constitutional: WD/WN, vitals as above no acute distress Eyes: PERRL, conjunctivae normal, anicteric sclerae ENMT: Mallampati Class: III Neck: trachea midline, no thyromegaly Respiratory: normal respiratory effort, lungs clear to auscultation Cardiovascular: Rate/Rhythm: regular rate and regular rhythm Vessels: femoral pulses present and radial pulses present (Radial access site healing well); no JVD Extremities: + edema (Trace) Musculoskeletal: no cyanosis or clubbing, extremities motor strength 5/5 Results & Data ([facility]) Vital Signs (Past 12 Hours) Vital Signs Temp Pulse Resp BP Pulse Ox O2 Del Method 11/05/21 12:45 50 L 16 126/78 98 Room Air 11/05/21 12:30 48 L 16 128/76 98 Room Air 11/05/21 12:20 48 L 16 125/72 98 Room Air 11/05/21 07:46 36.5 C 96 H 136/71 96 Room Air 11/05/21 05:00 36.5 C 52 L 18 135/70 97 Room Air Laboratory Results Laboratory Results - last 24 hr 11/04/21 11/04/21 11/05/21 16:22 20:54 05:41 Activ Coag Time Kaolin Sodium 139 Potassium 4.0 Chloride 105 Carbon Dioxide 30 Anion Gap 4 BUN 15 Creatinine 0.96 Est Cr Clr Drug Dosing 92.0 Est GFR ( Amer) 91.2 Est GFR (Non-Af Amer) 78.7 BUN/Creatinine Ratio 15.6 Glucose 151 H POC Glucose 156 H 141 H Calcium 8.9 Magnesium 2.0 11/05/21 11/05/21 11/05/21 07:13 11:07 12:00 Activ Coag Time Kaolin 231 H 202 H Sodium Potassium Chloride Carbon Dioxide Anion Gap BUN Creatinine Est Cr Clr Drug Dosing Est GFR ( Amer) Est GFR (Non-Af Amer) BUN/Creatinine Ratio Glucose POC Glucose 158 H Calcium Magnesium (1) Chest pain Chest pain type: unspecified Qualified Code(s): R07.9 - Chest pain, unspecified
[2021-11-05] MEDS ORDERED: ONDANSETRON INJ 2 MG/ML 2 ML VIAL IV PRN (14:14)
--- NOTE | 2021-11-05 14:29 | Cardiac Catheterization ---
[facility] Data: Oracle Fusion Consultant Cardiac Status Clinical evaluation leading to the procedure CAD Presenation: Unstable angina Anginal Classification: CCS III Diagnostic Physicians Name: Rajeev Gilbert MD Closure Device Recommendations: PCI without planned CABG Cardiac Cath Procedure Full Procedure Date November 05, 2021 Pre-Procedure Diagnosis Pre-Procedure Diagnosis: Angina AUC Score AUC Score: 8 Post-Procedure Diagnosis Post-Procedure Diagnosis: Severe CAD and Successful PCI Procedure(s) Performed Procedure(s) Performed: Coronary Angiography, Drug Eluting Stent and Ultrasound Guided Vascular Access Full Stack Web Developer Rajeev Gilbert MD Director Of Safety(s) Showers Estimated Blood Loss Estimated Blood Loss: 25 Medication(s) Medication(s): Clopidogrel, Fentanyl (12.5 mcg IV), Heparin (5000 units IV), Lidocaine 1% (Local infiltration access site), Nicardipine (250 mcg intra- arterial after arterial sheath insertion), Nitroglycerin and Versed (1 mg IV) Summary of Findings Indication: Unstable angina, severe RCA disease Access: 6 Fr right radial artery, 7 Fr right common femoral artery under ultrasound guidance Catheters: 6 Fr JR4 guide, 7 Fr AL-1 guide Findings: For full details of patient's coronary angiography please see cath report dictated by Dr. Carson. Briefly, patient found to have severe, 90% calcified distal RCA disease extending into right posterior AV branch Decision to proceed with PCI. -- PCI -- Antithrombotic therapy: Heparin, clopidogrel Procedure: RCA cannulated with JR4 Pre-procedure flow KAYLYN 3 Fixing Machine Operator 50 wire passed across lesion into distal vessel With the aid of a GuideLiner distal RCA lesion predilated with 2.5 compliant balloon Despite GuideLiner placement into distal RCA still unable to pass stent across initial distal RCA stenosis Distal RCA redilated with 2.5 and 3.0 balloons Eventually able to pass a 2.5 x 30 mm [place] drug-eluting stent across stenosis into right posterior AV branch ending just proximal to RPLB1 Unable to pass NC balloon through stent. In the process of attempting to pass balloon GuideLiner came twisted and wire pulled back. RCA recannulated with new JR4 guide and forestry pilot 50 wire navigated across stent. Unfortunately no additional 6 Fr GuideLiners available and unable to pass NC ba lloon into stent Right FUR FEEDER access obtained under ultrasound guidance with placement of 7 Fr sheath RCA cannulated with 7 Fr AL-1 guide Fixing Machine Operator 50 wire navigated across stent into distal vessel 7 Fr telescope support catheter placed to earlymid RCA Able to pass 2.75 NC balloon across stent. Stent postdilated to high atmospheres Residual stenosis question dissection flap at proximal edge of stent Second SABAS (3.0 x 8 mm [place]) overlap with proximal aspect of initial stent Stent post-dilated with stent balloon to high atmospheres IC vasodilators administered for spasm Post procedure KAYLYN 3 flow, stents well expanded with minimal residual stenosis and no apparent cardiac complications. Arterial Closure: TR band to radial artery. StarClose to FUR FEEDER. Summary: 1. Successful PCI of distal RCA into right posterior AV branch with 2 overlapping drug-eluting stents (3.0 x 8, 2.5 x 30 mm [place]). Recommendations: To PCU for continued monitoring Loaded with clopidogrel 600 mg in Oracle Fusion Consultant Continue dual-antiplatelet therapy for at least 6 months Continue statin, and ASCVD risk factor modification Consult cardiac Rehab Hemodynamics Rest Ao:: 131/59/84 Final Ao: 123/56/77 LV: 122/0 Recommendations Recommendations: PCI without planned CABG Specimens Specimens: None Radiation Exposure (mGy) 9056 Contrast (mls) 330 Fluids (cc crystalloids) Fluids (cc crystalloids): 75 Anesthesia Start time: 939, stop time: 1013 Procedural Complication(s) None Disposition Patient referred for PCI I attest to the content of the Intraoperative Record and any orders documented therein. Any exceptions are noted below. [facility] Card Cath Procedure Codes Therapeutic Services & Ancillary Procedure 1: Cardiovascular Tx and Anc Procedures: 10421 Ultrasonic Guidance Vascular Access Moderate Sedation Procedure 1: Sedation/Anesthesia: 29777 Mod Sedation by the same physician;Init15 Min Child Age 5 & Up Stenting Procedure 1: Cardiovascular Stent Procedures: 41209 Perc transcatheter placement of intracoronary stent(s), with ang PG Care Time/CCT Total # of Minutes Spent Total Time Spent with Patient: Total time spent is greater than 50% in coordination of care (as documented) at patient's floor/unit and/or counseling patient:
[2021-11-05] MEDS ORDERED: METOPROLOL TARTRATE 25 MG TAB PO STA (19:12)
[2021-11-05] MEDS: METOPROLOL TARTRATE 25 MG TAB PO SCH (23:47)
[2021-11-06] MEDS: METOPROLOL TARTRATE 25 MG TAB PO SCH (05:23)
--- NOTE | 2021-11-06 06:01 | Electrocardiogram Report ---
Test Reason : Blood Pressure : / mmHG Vent. Rate : 065 BPM Atrial Rate : 065 BPM P-R Int : 246 ms QRS Dur : 116 ms QT Int : 444 ms P-R-T Axes : 114 027 031 degrees QTc Int : 461 ms Sinus rhythm with 1st degree A-V block Cannot rule out Inferior infarct (cited on or before 02-NOV-2021) Abnormal ECG When compared with ECG of 03-NOV-2021 09:44, No significant change was found Confirmed by Robert Heck ([id number]) on 11/06/2021 6:01:34 AM Referred By: REFERRED SELF Confirmed By:Robert Heck
[2021-11-06 06:28] LABS: Basophils # (auto) 0.04 K/uL (0-0.2); Basophils % (auto) 0.5 %; Eosinophils # (auto) 0.15 K/uL (0-0.50); Hematocrit (blood only) 42.1 % (40.1-51.0); Immature Granulocytes # (auto) 0.04 K/uL (0.00-0.02); Immature Granulocytes % (auto) 0.5 %; Lymphocytes # (auto) 1.56 K/uL (1.2-3.4); Lymphocytes % (auto) 20.9 %; Mean Corpuscular Hemoglobin 30.8 pg (25.0-34.0); Mean Corpuscular Hgb Conc 33.3 g/dL (32.0-36.0); Mean Corpuscular Volume 92.5 fL (80.0-100.0); Mean Platelet Volume 8.8 fL (9.4-12.4); Monocytes # (auto) 0.81 K/uL (0.24-0.82); Monocytes % (auto) 10.9 %; Neutrophils # (auto) 4.86 K/uL (1.4-6.5); Neutrophils % (auto) 65.2 %; Platelet Count 196 K/uL (130-400); RDW Coefficient of Variation 13.6 % (11.5-14.5); RDW Standard Deviation 46.1 fL (36.4-46.3); Red Blood Count 4.55 M/uL (4.63-6.08); White Blood Count 7.46 K/ul (4.8-10.8)
[2021-11-06 06:51] LABS: BUN Creatinine Ratio 17.2 (10-20); Calcium 8.9 mg/dl (8.5-10.1); Est GFR (African American) 87.8 ml/min; Est GFR (Non-African American) 75.8 ml/min; Potassium 4.3 mmol/L (3.5-5.1)
[2021-11-06] MEDS: ASPIRIN 81 MG ECTAB PO SCH (08:03)
[2021-11-06] MEDS: ENOXAPARIN INJ 40 MG/0.4 ML SYR SQ SCH (08:04)
[2021-11-06] MEDS: DOCUSATE SODIUM/SENNA 50/8.6MG TAB PO SCH (08:04)
[2021-11-06] MEDS: DOXAZosin MESYLATE 4 MG TAB PO SCH (08:05)
[2021-11-06] MEDS: PANTOprazole 40 MG TAB PO SCH (08:06)
[2021-11-06] MEDS: lisinopril 2.5 MG TAB PO SCH (08:06)
[2021-11-06] MEDS: EZETIMIBE 10 MG TABLET PO SCH (08:06)
[2021-11-06] MEDS: INSULIN ASPART PER UNIT SC SCH (08:12)
[2021-11-06] MEDS: LANTUS PER UNIT CHARGE SQ SCH (08:12)
[2021-11-06] MEDS ORDERED: CLOPIDOGREL BISULFATE 75 MG TAB PO SCH (09:00)
--- NOTE | 2021-11-06 10:24 | Cardiology Progress Note ---
Date of Service November 06, 2021 Assessment & Plan (1) Chest pain: (2) Abnormal EKG: (3) HTN (hypertension): (4) Dyslipidemia: (5) Sleep apnea: Plan Patient is a 71-year-old male with known coronary artery disease with prior inferior myocardial infarction 2004 with chronic stable class I 2 angina pectoris in the past. He presents now noting a sudden change in exercise tolerance in the last 1 to 2 months with symptoms concerning for angina at low- level exertion at home date of admission. He noted chest pressure jaw pressure and shortness of breath as well as fluctuations heart rate and blood pressure EKGs demonstrated transient interventricular conduction delay but no acute ST segment changes Initial troponins negative Echocardiogram reflects hypokinesis inferior posterior wall slightly more pronounced than reported on prior studies no acute finding Symptoms are concerning for progression in anginal pattern. Discussed options of management with patient. Would recommend proceeding to coronary angiography with tentative procedure scheduled for Friday. Other options of medical therapy with stress testing discussed though patient already on excellent medical therapies with breakthrough symptom Patient agreeable we will follow with patient in hospital 11/04/2021. Once again as above. Some shortness of breath while ambulatory in room overnight. No acute chest pain or discomfort. Plan diagnostic coronary angiography in a.m. Procedure and risks explained in detail to the patient IV hydration ordered for this evening N.p.o. after mid 11/05/2021: Coronary angiography demonstrated new obstruction of the right coronary artery distal to prior stent and patient referred and underwent elective PCI with good result Right radial and right femoral artery access used. Plan continue follow overnight, dual antiplatelet therapy. 11/06/2021: Patient stable for discharge this morning given intermittent atrial tachycardia metoprolol succinate 25 mg p.o. okay to be added to regimen continue guideline directed optimal medical regimen otherwise including dual antiplatelet therapy. Follow-up with primary shoe caser to be arranged Patient notes planned cataract surgery. Will need to be performed on dual antiplatelet therapy. Would delay for 30 days post hospitalization Admission and Anticipated Discharge Date Admission Date: November 03, 2021 Subjective Patient was seen and examined, chart, medications, telemetry reviewed. No chest pains or shortness of breath somewhat labile heart rates overnight transient atrial tachycardia. No syncope or near syncope. No fevers or chills. No difficulties at access sites right wrist and right groin Review of Systems Review of Systems: All systems reviewed & are unremarkable except as noted in Subjective Physical Exam Constitutional: WD/WN, vitals as above + obese; no acute distress Eyes: PERRL, conjunctivae normal, anicteric sclerae ENMT: Mallampati Class: III Neck: trachea midline, no thyromegaly Respiratory: normal respiratory effort, lungs clear to auscultation Cardiovascular: Rate/Rhythm: regular rate and regular rhythm Vessels: femoral pulses present (Moderate ecchymosis at right femoral artery access site no hematoma) and radial pulses present (Radial access site healing well); no JVD Extremities: + edema (Trace) Gastrointestinal (Abdomen): normal bowel sounds, soft, nontender, no hepatosplenomegaly Musculoskeletal: no cyanosis or clubbing, extremities motor strength 5/5 Results & Data ([facility]) Vital Signs (Past 12 Hours) Vital Signs Temp Pulse Pulse Resp BP Pulse Ox O2 Del Method 11/06/21 08:00 51 L 11/06/21 07:30 36.7 C 67 18 123/74 95 11/06/21 05:23 51 L 11/06/21 03:41 36.5 C 58 L 20 137/70 96 Room Air 11/05/21 23:00 56 L 11/05/21 23:12 36.5 C 55 L 22 136/81 96 Room Air 11/05/21 22:31 52 L (1) Chest pain Chest pain type: unspecified Qualified Code(s): R07.9 - Chest pain, unspecified
--- NOTE | 2021-11-06 15:24 | Discharge Summary ---
Date of Service November 06, 2021 Admission HPI Per Admitting Provider Patient is 71-year-old male with PMH HTN, dyslipidemia, CAD status post stent RCA 2004, aortic root enlargement, DM II chronic BLE edema, venous insufficiency, obesity, BPH, RICK intolerant to CPAP, presented to ER with complaint of chest discomfort. Patient states today was grocery shopping and walking around the store. He returned home and upon return home he had onset of lightheadedness, palpitations, "chest feels funny but not painful", and jaw pain. He states with prior [place] had jaw pain. He reports he has been feeling short of breath with exertion more recently. Patient went to outpatient clinic for symptoms today and was referred to ER for further evaluation. In ER patient denies any chest pain, shortness of breath, palpitations, dizziness. She reports he feels fatigued. Patient states chronic insomnia and last night slept 1 hour. Patient states 2 weeks ago had nasal congestion, sore throat, cough. He reports his grandson had sore throat symptoms. He reports his symptoms have improved, still has lingering intermittent cough. Did not test for COVID-19 initially. Patient states 2 to 3 days ago did home COVID-19 test which was negative. Patient reports almost a month ago had scratch to right lower leg and had surrounding redness and was treated with oral antibiotics with improvement. Denies fever/chills, diaphoresis, N/V/D/C, RUSSELL, syncope, vision changes, neck pain, orthopnea, hemoptysis, choking, otalgia, abdominal pain, paresthesias, weakness, increased extremity edema, rashes, urinary symptoms. Admission Exam Per Admitting Provider General: no distress, obese Head: normocephalic, atraumatic Eyes: conjunctiva non-injected, anicteric ENT: normal inspection external ears, nose, mucous membranes moist Neck: supple, trachea midline Lungs: no respiratory distress, +scattered expiratory wheezing that decreases after coughing, no rhonchi/rales CV: RRR, no murmur, 1+ pretibial edema Abd: normal BS, soft, non-tender Ext: no cyanosis, no calf tenderness, RLE: +anterior lower leg with scab with surrounding erythema Neuro: A&O x 3, no focal deficits noted, normal affect Skin: warm, dry Principal Diagnosis Angina s/p Stent placement in RCA Discharge Exam GENERAL: Alert and oriented x3. NAD, on RA. Class II obese HEENT: No pallor, no icterus. Pupils equal, round and reactive to light. Oral mucosa moist. NECK: No JVD, no neck masses. HEART: S1 and S2 heard. Regular rate and rhythm. No murmur, no gallop. RESPIRATORY SYSTEM: Normal AP diameter. No accessory muscle use. No wheezing, no crackles. ABDOMEN: Soft, bowel sounds present, nontender, no distention. CENTRAL NERVOUS SYSTEM: No facial droop. Speech is clear. Obeys simple commands. Moves extremities. EXTREMITIES: Trace BLE edema, no erythema seen. BLE chronic skin changes noted. Discharge Data Allergies Allergy/AdvReac Type Severity Reaction Status Date / Time atorvastatin AdvReac Muscle Pain Verified 11/02/21 21:09 pravastatin [From Pravachol] AdvReac Muscle Pain Verified 11/02/21 21:09 rosuvastatin [From Crestor] AdvReac Muscle Pain Verified 11/02/21 21:09 simvastatin [From Zocor] AdvReac Muscle Pain Verified 11/02/21 21:09 tiotropium AdvReac Eye Verified 11/02/21 21:57 floaters & Urinary retention Consultations 11/02/21 20:40 ED Decision to Admit Stat 11/03/21 03:41 Consult Cardiology Routine 11/05/21 14:17 Consult Cardiac Rehabilitation Routine Procedures Performed Operation Date: 11/05/21 09:30 Actual Procedures p Drug Eluting Stent SGl Vessel - Benjy Gilbert MD s Cineradiography w/Routine Exam - Brodie Carson MD s Ultrasound Vascular Access - Benjy Gilbert MD s Placement Art Occlusive Device - Benjy Gilbert MD Ordered Studies 11/02/21 22:52 CT angio chest PE protocol Stat 11/05/21 07:20 CL Cath Imgs for PACS use only Routine Hospital Course (1) Palpitations: (2) CAD in [place] artery: (3) HTN (hypertension): (4) Dyslipidemia: (5) Diabetes mellitus, type II: (6) GERD (gastroesophageal reflux disease): (7) BPH (benign prostatic hyperplasia): (8) Sleep apnea: (9) Obesity: History, PE, med rec completed by Haylie Solorzano PA-C. Assessment and plan per Dr. Churchill. See addendum Plan 71-year-old male with PMH of HTN, dyslipidemia, CAD status post stent to RCA 2004, aortic root enlargement, DM II, chronic BLE edema, venous insufficiency, obesity, BPH, RICK intolerant to CPAP, presented to ER 11/02 with complaint of chest discomfort. Patient reports 1 to 2-week of feeling funny sensation in the chest along with shortness of breath during exertion which particularly became worse yesterday and hence presented to the hospital. EKG showed sinus bradycardia with first-degree AV block with no ST or T wave changes. Echo showed EF of 50 to 55% with mildly hypokinetic inferior and posterior wall. Patient underwent left heart catheterization with stent placement in RCA on 11/05 by cardiology. Patient was started on dual antiplatelet therapy. He was also started on metoprolol succinate 25 mg once daily. Patient was asked to follow- up with his primary care doctor and cardiology as outpatient. On admission, CT chest was done which showed pleural-based nodules measuring up to 10 mm. The finding was discussed with the patient and his daughter. Patient was recommended to have follow-up CT scan as outpatient and discuss further management with his primary care doctor. Total Time Total Time Spent Total Time Spent (In Minutes): 35 Total Time Includes: Examination of the Patient, Discharge Planning, Medication Reconciliation, Communication With Other Providers and Other Discharge Plan Discharge Items Patient Disposition: Home - Self-Care Reason For Visit: CP Discharge Diagnosis: Angina s/p Stent placement in RCA Activity: Resume your previous activity Non-emergency contact: Primary Care Provider Call non-emergency contact if: you have any medication questions and your sy mptoms worsen Follow-up/Referrals: [facility] [Other] (The cardiology office will call you with an appointment. Please call if you have any questions.) Dean De Souza MD [Primary Care Provider] - 11/13/21 2:00 pm (Date & Time 11/13/2021 2:00 PM Provider Dean De Souza MD [facility] ) Diet: Regular Addtl Attending Provider Instructions: You were admitted to the hospital with chest pain. Left heart catheterization was done on 11/05/2021; stent was placed in one of your heart vessels (RCA). The following changes are made to your medications: 1) start taking Plavix 75 mg once daily. Please continue to take your aspirin as well. You will need to be on these 2 medications for at least 6 months. You need to follow-up with your bilingual elementary school teacher. 2) start taking metoprolol 25 mg once a day. This will help with your heart rate and blood pressure. 3) stop taking esomeprazole and start taking Protonix. Esomeprazole is known to interact with Plavix. CT chest was done during the hospitalization; it showed 2 pathologically indeterminant pulmonary and pleural-based nodules at the right lung base measuring up to 10 mm. Please discuss these findings with your primary care doctor. You will require follow-up CT scan and may also require referral to sewer maintenance supervisor. Pending Studies at Discharge: No Stand-Alone Forms: [facility], Smoking Cessation Medications and DC Order Prescriptions: New clopidogrel 75 mg Tablet 75 mg PO QAM Qty: 30 0RF pantoprazole 40 mg Tablet,Delayed Release (Dr/Ec) 40 mg PO QAM Qty: 30 0RF metoprolol succinate 25 mg Tablet Extended Release 24 Hr 25 mg PO QAM Qty: 30 0RF Continued clonazepam [Klonopin] 1 mg tablet 1 mg PO HS PRN (Reason: Insomnia) aspirin 81 mg Tablet,Delayed Release (Dr/Ec) 81 mg PO QAM metformin 1,000 mg tablet 1,000 mg PO BID nitroglycerin [Nitrostat] 0.4 mg tablet, sublingual 0.4 mg sublingual Q15M PRN (Reason: Chest Pain) doxazosin [Cardura] 4 mg tablet 4 mg PO QAM lisinopril [Zestril] 2.5 mg tablet 2.5 mg PO QAM omega 0-qbj-skd-fish oil [Fish Oil] 1,000 mg (120 mg-180 mg) Capsule 1 cap PO QAM Praluent Pen 150 mg/mL pen injector 150 mg SUBCUT Q14D ezetimibe 10 mg tablet 10 mg PO DAILY cholecalciferol (vitamin D3) 25 mcg (1,000 unit) Tablet 1,000 unit PO DAILY Jardiance 25 mg tablet 25 mg PO DAILY Trulicity 1.5 mg/0.5 mL pen injector 1.5 mg SUBCUT WK fluticasone propionate 50 mcg/actuation spray,suspension 2 spray INTRANASAL DAILY PRN (Reason: Congestion) Discontinued esomeprazole magnesium [Nexium 24HR] 20 mg Tablet,Delayed Release (Dr/Ec) 20 mg PO QAM Discharge Orders: Discharge Order (Routine); Ordered 11/06/21 Ordered By: Collins Dash Admission Data Admit Date/Time: 11/03/21 13:47 Attending Provider: Collins Dash Admit Provider: Frank Churchill Primary Care Provider: Dean De Souza Other Providers: Frank Churchill ; Sonu Rodriguez ; Ephraim Hyman ; Brodie Carson ; Jhon Hedrick ; Brenton Doshi ; Royce Capps ; Nicolle Porras ; Paty Sanchez ; Tosha Saenz ; Lobo Schwartz Other Interventions: Discharge Summary Assessment (RN) Last Done: 11/06/21 11:00
[2021-11-07] MEDS ORDERED: METOPROLOL SUCC 25MG EXT REL TAB PO SCH (09:00)
== END 2021-11-06 11:42 | disposition home or self-care (01) | DRG 247 ==
LOC: ED 18:47 → 2S 18:47 → SUATTDRO 23:04 → 2S 11-03 00:21 → SUATTDRO 11-03 13:47